=== PATIENT | female | born 1950 | race Caucasian/White ===

== ENCOUNTER 2017-01-08 14:42 | Emergency (ER) | payer MEDICARE ==
[2017-01-08 15:04] VITALS: BP 138/72; PULSE 56; RESP 16; TEMP 98.3
[2017-01-08] MEDS ORDERED: LORATADINE 10 MG TAB PO STA (15:25)
--- NOTE | 2017-01-08 15:46 | XR ---
EXAMINATION TYPE: XR chest 2V DATE OF EXAM: 01/08/2017 3:38 PM COMPARISON: NONE HISTORY: Cough and congestion for 2 months. TECHNIQUE: Frontal and lateral views of the chest are obtained. FINDINGS: There is no focal air space opacity, pleural effusion, or pneumothorax seen. The cardiac silhouette size is within normal limits. The osseous structures are intact. Cholecystectomy clips a re noted on lateral view. Surgical changes epigastric region with sutures and clips may be related to gastric bypass surgery. IMPRESSION: No acute cardiopulmonary process.
--- NOTE | 2017-01-08 15:51 | ED ---
General Adult HPI - General Chief complaint: Upper Respiratory Infection Stated complaint: cough Time Seen by Provider: 01/08/17 15:16 Source: patient, RN notes reviewed Mode of arrival: ambulatory Limitations: no limitations - History of Present Illness Initial comments: 66-year-old female presents to the emergency department with a chief complaint of cough. Patient has had a continued cough for the past 3 months. Patient states that she does feel some postnasal drip. Patient states the cough is worse at night. Patient denies any real sputum production and chest pain with it. Patient states that she went to her doctor he sent her lungs sound clear. Patient states she was concerned due to the continued cough so she thought that she should be reevaluated. Patient hasn't had a fever chills with this. Patient denies any heart issues. Patient denies any other symptoms at this time.Patient denies any recent fever, chills, shortness of breath, chest pain, back pain, abdominal pain, nausea vomiting, numbness or tingling, dysuria or hematuria, constipation or diarrhea, headaches or visual changes, or any other current symptoms. - Related Data Home Medications Medication Instructions Recorded Confirmed HYDROcodone/APAP 10-325MG [[place] 1 tab PO Q6H PRN 01/08/17 01/08/17 10-325] Lisinopril [Zestril] 10 mg PO DAILY 01/08/17 01/08/17 Montelukast [Singulair] 10 mg PO DAILY 01/08/17 01/08/17 Previous Rx's Medication Instructions Recorded Loratadine [Claritin] 5 mg PO DAILY #14 tab 01/08/17 Allergies Allergy/AdvReac Type Severity Reaction Status Date / Time No Known Allergies Allergy Verified 01/08/17 15:33 Review of Systems ROS Statement: Those systems with pertinent positive or pertinent negative responses have been documented in the HPI. ROS Other: All systems not noted in ROS Statement are negative. Past Medical History Past Medical History: Hypertension History of Any Multi-Drug Resistant Organisms: None Reported Past Surgical History: Back Surgery, Bariatric Surgery, Cholecystectomy, Hysterectomy, Orthopedic Surgery Past Psychological History: No Psychological Hx Reported Smoking Status: Never smoker Past Alcohol Use History: Occasional Past Drug Use History: None Reported General Exam Limitations: no limitations General appearance: alert, in no apparent distress Eye exam: Present: normal appearance, PERRL, EOMI. Absent: scleral icterus, conjunctival injection, periorbital swelling ENT exam: Present: normal exam, mucous membranes moist Neck exam: Present: normal inspection. Absent: tenderness, meningismus, lymphadenopathy Respiratory exam: Present: normal lung sounds bilaterally. Absent: respiratory distress, wheezes, rales, rhonchi, stridor Cardiovascular Exam: Present: regular rate, normal rhythm, normal heart sounds. Absent: systolic murmur, diastolic murmur, rubs, gallop, clicks Neurological exam: Present: alert, oriented X3, CN II-XII intact. Absent: motor sensory deficit Psychiatric exam: Present: normal affect, normal mood Skin exam: Present: warm, dry, intact, normal color. Absent: rash Course Vital Signs 01/08/17 14:59 Temperature 98.3 F Pulse Rate 56 L Respiratory 16 Rate Blood Pressure 138/72 O2 Sat by Pulse 99 Oximetry Medical Decision Making - Medical Decision Making 66-year-old male presents with chief complaint of cough. At this time due to the length of time she has been coughing discussed the different etiologies. Due to the fact that she does have some skin itching along with a cough we discussed this most likely an ALLERGY type component. We did set the patient and Claritin. We discussed that this should help improve the cough is it related to ALLERGIES. Chest x-ray did not show any acute process. We did discuss that acid reflux could be another cause of the Claritin does not help she should follow-up with her doctor for possibly taken an antacid-type medication to see if that would use the cough. We discussed she is also on lisinopril but with the postnasal drip we discussed that ALLERGY seems more suspicious that we did discuss follow-up. patient stated that she understood and she is given plan. All questions have been answered. This time she will be discharged home. - Radiology Data Radiology results: report reviewed, image reviewed Disposition Clinical Impression: Postnasal drip, Cough Disposition: HOME SELF-CARE Condition: Stable Instructions: Allergies (ED) Additional Instructions: Please use medication as discussed. Please follow up with family doctor if symptoms have not improved over the next two days. Please return to the emergency room if your symptoms increase or worsen or for any other concerns. Prescriptions: Loratadine [Claritin] 5 mg PO DAILY #14 tab Referrals: Eliana Wade MD [Primary Care Provider] - 1-2 days Time of Disposition: 15:53
== END 2017-01-08 16:01 | disposition home or self-care (01) ==
LOC: EC 14:42
DX: R09.82 Postnasal drip (principal); R05 Cough; I10 Essential (primary) hypertension; Z79.899 Other long term (current) drug therapy
CPT/HCPCS: 71020; 99283

== ENCOUNTER 2018-02-05 08:30 | Day surgery (SDC) | payer MEDICARE ==
[2018-02-03 09:54] VITALS: BMI 48.0
[~2018-02-05 08:30] MED LIST: MOXIFLOXACIN HCL 0.5% DROPS 3 ML BTL OP ONE; TETRACAINE 0.5% OPHTH (PF) DROPS 4 ML BTL OP ONE; TIMOLOL 0.5% OPHTH DROPS 5 ML BTL OP ONE
[2018-02-05 09:58] VITALS: RESP 18; TEMP 97.6
[2018-02-05] MEDS: CYCLOPENTOLATE 1% OPHTH SOLN 2 ML BTL OP ONE ×3 (09:58→10:12)
[2018-02-05] MEDS: PHENYLEPHRINE 2.5% OPHTH DRP 2ML OP NR ×3 (10:01→10:16)
[2018-02-05] MEDS: LACTATED RINGERS 1,000 ML IV SCH ×2 (10:16→10:40)
[2018-02-05] MEDS ORDERED: MIDAZOLAM 2 MG/2 ML VIAL ONE (10:42)
[2018-02-05] MEDS ORDERED: HYALURONATE SODIUM INTRAOCULAR 1 EACH SYRINGE (12MG/ML) INTRAOCULA ONE (10:43)
[2018-02-05] MEDS ORDERED: BALANCED SALT IRRIG SOLN COMB2 15 ML IRRIG.SOLN IRRIGATION ONE (10:43)
[2018-02-05] MEDS ORDERED: LIDOCAINE 1% (PF) 10MG/ML VIAL MISCELLANE ONE (10:44)
[2018-02-05] MEDS ORDERED: EPINEPHrine (PF) 0.3 ML in BALANCED SALT IRRIG SOLN COMB2 500 ML IRRIGATION ONE (10:46)
--- NOTE | 2018-02-05 11:15 | P.OP ---
Date of Procedure: 02/05/18 Preoperative Diagnosis: NS Postoperative Diagnosis: same Procedure(s) Performed: PIOL OD Implants: PCB00 21.50 Anesthesia: MAC Surgeon: Gerardo Blackwell Estimated Blood Loss (ml): 0 Pathology: none sent Condition: stable Disposition: same day Indications for Procedure: blurry vision Operative Findings: no complications
[2018-02-05 11:44] VITALS: BP 174/81; PULSE 68
--- NOTE | 2018-02-05 14:24 | OP ---
OPERATIVE REPORT DATE OF SERVICE: 02/05/2018 PROCEDURE: Phacoemulsification of cataract and intraocular lens implant of the right eye. PREOPERATIVE DIAGNOSIS: Nuclear sclerosis: POSTOPERATIVE DIAGNOSIS: Nuclear sclerosis. OPERATION:: Clear cornea phacoemulsification of cataract right eye. ESTIMATED BLOOD LOSS:: Zero. SPECIMEN TAKEN:: None. NARRATIVE:: After obtaining the appropriate consent, the patient was brought to the Operating Room where the patient was placed under cardiac monitoring and prepped and draped in the usual sterile manner. At the 11 o'clock position, a 15 degree super sharp blade was used to create a paracentesis followed by instillation of 1% Xylocaine MPF 50:50 mix with BSS into the anterior chamber. This was followed by Amvisc to stabilize the anterior chamber. At the 9 o'clock position a self-sealing corneal flap incision was created using 2.8 mm gretta keratome. A cystatome was used to initiate a continuous tear capsulorrhexis which was completed with the Utrata forceps. A Binkhorst cannula was used to hydrodissect the lens nucleus followed by hydrodelineation. Phacoemulsification of the lens was performed utilizing phacochop in 19.03 seconds at 15% power. The remaining cortical material was removed using the irrigation aspiration mode followed by additional 1% Xylocaine MPF into the anterior chamber followed by viscoelastic to stabilize the capsular bag. An MARGOT PCB00 21.5 diopters posterior chamber lens was placed into the capsular bag without difficulty. The remaining viscoelastic material was removed from the anterior chamber with the irrigation/aspiration. Balanced salt solution was used to normalize the intraocular pressure. The incision was checked for watertight integrity. The patient then received two drops of 0.5% timolol followed by two drops Vigamox, was lightly patched and shielded in the usual manner. There were no complications from the procedure. The patient tolerated the procedure well and was returned to recovery in good condition. MMODL / IJN: [id number] /
== END 2018-02-05 11:56 | disposition home or self-care (01) ==
LOC: OR 08:30
PROVIDERS: ATTEND Ophthalmology
DX: H25.13 Age-related nuclear cataract, bilateral (principal); I10 Essential (primary) hypertension; E03.9 Hypothyroidism, unspecified; H52.13 Myopia, bilateral; D64.9 Anemia, unspecified; E55.9 Vitamin D deficiency, unspecified; Z79.899 Other long term (current) drug therapy
CPT/HCPCS: 66984; C1780; J2250; J0171; J2001

== ENCOUNTER → 2018-02-19 | Day surgery (SDC) | payer MEDICARE ==
[2018-02-17 10:40] VITALS: BMI 46.3
[~2018-02-19] MED LIST changes: +BALANCED SALT IRRIG SOLN COMB2 15 ML IRRIG.SOLN IRRIGATION ONE; +EPINEPHrine (PF) 0.3 ML in BALANCED SALT IRRIG SOLN COMB2 500 ML IRRIGATION ONE; +HYALURONATE SODIUM INTRAOCULAR 1 EACH SYRINGE (12MG/ML) INTRAOCULA ONE; +LACTATED RINGERS 1,000 ML IV SCH; +LIDOCAINE 1% (PF) 10MG/ML VIAL MISCELLANE ONE; +LIDOCAINE 1% 20 ML VIAL (10MG/ML) FOR IV START INTRADERMA PRN; +MIDAZOLAM 2 MG/2 ML VIAL IV PRN; +MIDAZOLAM 2 MG/2 ML VIAL ONE; +fentaNYL (PF) 50 MCG/ML 2 ML AMP ONE
[2018-02-19] MEDS: PHENYLEPHRINE 2.5% OPHTH DRP 2ML OP NR ×3 (07:50→08:02)
[2018-02-19] MEDS: CYCLOPENTOLATE 1% OPHTH SOLN 2 ML BTL OP ONE ×3 (07:53→08:05)
[2018-02-19 08:05] VITALS: RESP 16; TEMP 97
--- NOTE | 2018-02-19 09:17 | P.OP ---
Date of Procedure: 02/19/18 Preoperative Diagnosis: NS Postoperative Diagnosis: same Procedure(s) Performed: PIOL, OS Implants: PCB00 21.50 Anesthesia: MAC Surgeon: Gerardo Blackwell Estimated Blood Loss (ml): 0 Pathology: none sent Condition: stable Indications for Procedure: blurry vision Operative Findings: no complications
[2018-02-19 09:20] VITALS: PULSE 60
[2018-02-19 09:37] VITALS: BP 156/79
--- NOTE | 2018-02-19 12:46 | OP ---
OPERATIVE REPORT DATE OF SURGERY: 02/19/2018 PROCEDURE: Phacoemulsification of cataract and intraocular lens implant of the left eye. PREOPERATIVE DIAGNOSIS:: Nuclear sclerosis. POSTOPERATIVE DIAGNOSIS:: Nuclear sclerosis. OPERATION:: Clear cornea phacoemulsification of cataract left eye. ESTIMATED BLOOD LOSS:: Zero. SPECIMEN TAKEN:: None. NARRATIVE:: After obtaining the appropriate consent, the patient was brought to the Operating Room where the patient was placed under cardiac monitoring and prepped and draped in the usual sterile manner. At the 5 o'clock position a 15 degree super sharp blade was used to create a paracentesis followed by instillation of 1% Xylocaine MPF 50:50 mix with BSS into the anterior chamber. This was followed by Amvisc to stabilize the anterior chamber. At the 3 o'clock position a self-sealing corneal flap incision was created using 2.8 mm gretta keratome. A cystotome was used to initiate a continuous tear capsulorrhexis which was completed with the Utrata forceps. A Binkhorst cannula was used to hydrodissect the lens nucleus followed by hydrodelineation. Phacoemulsification of the lens was performed utilizing phaco-chop in 11.92 seconds at 18% power. The remaining cortical material was removed using the irrigation aspiration mode followed by additional 1% Xylocaine MPF into the anterior chamber followed by viscoelastic to stabilize the capsular bag. An [id number] 21.5 Diopters posterior chamber lens was placed into the capsular bag without difficulty. The remaining viscoelastic material was removed from the anterior chamber with the irrigation/aspiration. Balanced salt solution was used to normalize the intraocular pressure. The incision was checked for watertight integrity. The patient then received two drops of 0.5% timolol followed by two drops Vigamox, was lightly patched and shielded in the usual manner. There were no complications from the procedure. The patient tolerated the procedure well and was returned to recovery in good condition. MMODL / IJN: [id number] /
== END | disposition home or self-care (01) ==
LOC: OR 06:54
PROVIDERS: ATTEND Ophthalmology
DX: H25.12 Age-related nuclear cataract, left eye (principal); H52.13 Myopia, bilateral; Z96.1 Presence of intraocular lens; I10 Essential (primary) hypertension; E03.9 Hypothyroidism, unspecified; D64.9 Anemia, unspecified; E55.9 Vitamin D deficiency, unspecified; E66.01 Morbid (severe) obesity due to excess calories; Z68.42 Body mass index [BMI] 45.0-49.9, adult; Z79.890 Hormone replacement therapy; Z79.891 Long term (current) use of opiate analgesic; Z79.899 Other long term (current) drug therapy; Z98.84 Bariatric surgery status
CPT/HCPCS: 66984; C1780; J2250; J0171; J3010; J2001

== ENCOUNTER 2022-04-24 07:17 | Day surgery (SDC) | payer MEDICARE ==
[2022-04-20 10:21] VITALS: BMI 43.4
[2022-04-24 07:41] VITALS: TEMP 97.6
[2022-04-24] MEDS ORDERED: LACTATED RINGERS 1,000 ML IV ONE (07:47)
[2022-04-24] MEDS ORDERED: LIDOCAINE 1% (10MG/ML) FOR IV START INTRADERMA ONE (07:48)
[2022-04-24] MEDS ORDERED: PROPOFOL 10 MG/ML 20 ML VIAL IV ONE (07:59)
--- NOTE | 2022-04-24 08:02 | P.GSHP ---
History of Present Illness H&P Date: 04/24/22 Chief Complaint: Colon cancer screening 72-year-old female here today for follow-up colonoscopy. Last colonoscopy performed 7 years ago. Patient had a single polyp at that time. No bowel related complaints. No family history of colon cancer. Past Medical History Past Medical History: Hypertension, Osteoarthritis (OA), Pneumonia, Thyroid Disorder Additional Past Medical History / Comment(s): BACK PAIN, HX OF "STOMACH STAPLING"., BILATERAL CATARACTS., History of Any Multi-Drug Resistant Organisms: None Reported Past Surgical History: Back Surgery, Bariatric Surgery, Cholecystectomy, Hysterectomy, Joint Replacement, Orthopedic Surgery Additional Past Surgical History / Comment(s): left knee replacment, "stomach staple x 3 " (DR [id number]) , COLONOSCOPY Past Anesthesia/Blood Transfusion Reactions: No Reported Reaction Smoking Status: Never smoker - Past Family History Mother Family Medical History: Diabetes Mellitus Brother(s) Family Medical History: Diabetes Mellitus Medications and Allergies Home Medications Medication Instructions Recorded Confirmed Type Ergocalciferol [Vitamin D2 50,000 unit PO TU 11/12/17 04/20/22 History (LEWIS)] HYDROcodone/APAP 10-325MG [[place] 1 tab PO Q6H PRN 11/12/17 04/20/22 History 10-325] Levothyroxine Sodium 88 mcg PO DAILY 11/12/17 04/20/22 History Meloxicam [Mobic] 15 mg PO DAILY 04/20/22 04/20/22 History Phentermine HCl [Adipex-P] 37.5 mg PO DAILY 04/20/22 04/20/22 History Valsartan [Diovan] 160 mg PO DAILY 04/20/22 04/24/22 History Allergies Allergy/AdvReac Type Severity Reaction Status Date / Time No Known Allergies Allergy Verified 04/24/22 07:35 Surgical - Exam Vital Signs Temp Pulse Resp BP Pulse Ox 97.6 F 78 16 161/79 95 04/24/22 07:40 04/24/22 07:40 04/24/22 07:40 04/24/22 07:40 04/24/22 07:40 Physical exam: General: Well-developed, well-nourished HEENT: Normocephalic, sclerae nonicteric Abdomen: Nontender, nondistended Extremities: No edema Neuro: Alert and oriented Assessment and Plan (1) Colon cancer screening Narrative/Plan: Will proceed with colonoscopy at this time Current Visit: Yes Status: Acute Code(s): Z12.11 - ENCOUNTER FOR SCREENING FOR MALIGNANT NEOPLASM OF COLON SNOMED Code(s): 777842993
--- NOTE | 2022-04-24 08:27 | P.PCN ---
Date of Procedure: 04/24/22 Procedure(s) Performed: PREOPERATIVE DIAGNOSIS: Colon cancer screening with history of polyps POSTOPERATIVE DIAGNOSIS: Multiple polyps, poor prep, diverticulosis PROCEDURE: Colonoscopy with snare polypectomy ANESTHESIA: MAC SURGEON: Jm Hurtado M.D. SPECIMENS: Polyps ENDOSCOPIC PROCEDURE: The patient was placed on the endoscopy table in the left decubitus position. The Olympus colonoscope was inserted into the anus and passed under direct visualization to the base of the cecum. The appendiceal or ifice was visualized. From that point the scope was slowly withdrawn inspecting all surfaces carefully. There were no neoplastic inflammatory or polypoid lesions throughout the cecum or ascending colon. Transverse colon had 4 polyps all removed using the snare with cautery technique. The descending colon appeared normal. In the sigmoid colon 2 polyps were seen and removed in a similar fashion. The rectum appeared normal. The patient's prep was suboptimal and during the procedure the patient was coughing frequently making it difficult to visualize the mucosal surfaces well. There was mild left-sided diverticulosis seen. At the anus to was noted to be either a hypertrophied anal papilla or a hemorrhoidal skin tag noted. The patient was taken to the recovery room in stable condition per anesthesia guidelines. RECOMMENDATIONS: Await biopsy results. Recommend repeat colonoscopy 1 year with general anesthesia.
[2022-04-24 08:47] VITALS: BP 121/70; PULSE 60; RESP 16
== END 2022-04-24 09:26 | disposition home or self-care (01) ==
LOC: ORWHC2ENDO 07:17
PROVIDERS: ATTEND Surgery
DX: Z12.11 Encounter for screening for malignant neoplasm of colon (principal); D12.5 Benign neoplasm of sigmoid colon; D12.3 Benign neoplasm of transverse colon; K57.30 Diverticulosis of large intestine without perforation or abscess without bleeding; Z86.010 Personal history of colon polyps; I10 Essential (primary) hypertension; M19.90 Unspecified osteoarthritis, unspecified site; E07.9 Disorder of thyroid, unspecified; Z98.84 Bariatric surgery status; Z90.49 Acquired absence of other specified parts of digestive tract; Z83.3 Family history of diabetes mellitus; Z79.890 Hormone replacement therapy; Z79.1 Long term (current) use of non-steroidal anti-inflammatories (NSAID); Z79.899 Other long term (current) drug therapy; G35 Multiple sclerosis
CPT/HCPCS: 88305; 45385; J2704

== ENCOUNTER → 2023-08-30 | Outpatient (CLI) | payer MEDICARE | END | disposition home or self-care (01) | LOC: LABPAT 10:22 | PROVIDERS: ATTEND Orthopaedic Surgery | DX: Z01.812 Encounter for preprocedural laboratory examination (principal); M17.11 Unilateral primary osteoarthritis, right knee; Z22.322 Carrier or suspected carrier of Methicillin resistant Staphylococcus aureus | CPT/HCPCS: 87070 ==

== ENCOUNTER 2023-09-03 05:41 | Inpatient (IN) | payer MEDICARE ==
--- NOTE | 2023-09-02 08:20 | P.HPOR ---
History of Present Illness H&P Date: 09/02/23 Chief Complaint: Right knee pain The patient is a 73-year-old retired female presents with progressive right knee pain for the past several years worsening recently. She's having pain with weightbearing activities. She notes stiffness and soreness. She has difficult time with stairs. She tried medications in addition to previous injections with only temporary relief. She's been working hard on weight loss. Review of Systems Negative except as in HPI Past Medical History Past Medical History: Hypertension, Osteoarthritis (OA), Thyroid Disorder Additional Past Medical History / Comment(s): BACK PAIN, HX OF "STOMACH STAPLING"., BILATERAL CATARACTS., History of Any Multi-Drug Resistant Organisms: None Reported Past Surgical History: Back Surgery, Bariatric Surgery, Cholecystectomy, Hysterectomy, Joint Replacement, Orthopedic Surgery Additional Past Surgical History / Comment(s): left knee replacment, "stomach staple x 3 " (DR [id number]) , COLONOSCOPY lyndsay cataracts Past Anesthesia/Blood Transfusion Reactions: No Reported Reaction Smoking Status: Never smoker - Past Family History Mother Family Medical History: Diabetes Mellitus Brother(s) Family Medical History: Diabetes Mellitus Medications and Allergies Home Medications Medication Instructions Recorded Confirmed Type Ergocalciferol [Vitamin D2 50,000 unit PO TU 11/12/17 08/30/23 History (LEWIS)] HYDROcodone/APAP 10-325MG [[place] 1 tab PO Q6H PRN 11/12/17 08/30/23 History 10-325] Levothyroxine Sodium 88 mcg PO DAILY 11/12/17 08/30/23 History Meloxicam [Mobic] 15 mg PO DAILY 04/20/22 08/30/23 History Valsartan [Diovan] 160 mg PO DAILY 04/20/22 08/30/23 History ALPRAZolam [Xanax] 0.25 mg PO TID PRN 08/30/23 08/30/23 History Ciprofloxacin HCl [Cipro] 250 mg PO Q12H 08/30/23 08/30/23 History Allergies Allergy/AdvReac Type Severity Reaction Status Date / Time No Known Allergies Allergy Verified 08/30/23 08:01 Physical Examination - Knee right Appearance: effusion Effusion grade: grade 2 Varus alignment in stance: 5 degrees Tenderness with palpation: anterior, medial Pain: throughout ROM Gait: limping ROM: extension: -15 degrees ROM: flexion: 90 degrees Crepitus with motion: Yes Strength: extension: 5/5 Strength: flexion: 5/5 Meniscal tests: medial meniscal tests: positive, medial joint line pain: positive Results The patient is a well-developed well-nourished female I'm approximately 5 foot 5, 260 pounds of endomorphic abscess. HEENT exam is nonfocal, neck is supple. She has painless passive motion of the right hip. Straight leg raise is negative. She is tender with medial joint line of the right knee. Collaterals are stable, Carson was negative, Sophy's is equivocal. Her distal neurovascular exam appears intact in the right lower extremity. - Diagnostic results Knee x-ray: image reviewed (3 views of the right knee obtained in the office show severe medial compartment osteoarthrosis with [id number] changes and subchondral sclerosis.) Assessment and Plan Assessment: Right knee severe medial compartment osteoarthrosis Obesity Plan: I talked to the patient at length regarding her condition along with treatment options. At this point she is quite symptomatic having pain and mechanical symptoms related to her right knee osteoarthrosis despite conservative measures and attempted weight loss. After thorough discussion she opts to proceed with surgery. We'll plan to proceed with right total knee arthroplasty. We will institute DVT prophylaxis postoperatively. Risks and benefits were discussed at length in layman's terms.
[~2023-09-03 05:41] MED LIST changes: +ACETAMINOPHEN TAB 500 MG TAB PO PRN; -BALANCED SALT IRRIG SOLN COMB2 15 ML IRRIG.SOLN IRRIGATION ONE; -EPINEPHrine (PF) 0.3 ML in BALANCED SALT IRRIG SOLN COMB2 500 ML IRRIGATION ONE; -HYALURONATE SODIUM INTRAOCULAR 1 EACH SYRINGE (12MG/ML) INTRAOCULA ONE; -LACTATED RINGERS 1,000 ML IV SCH; -LIDOCAINE 1% (PF) 10MG/ML VIAL MISCELLANE ONE; -LIDOCAINE 1% 20 ML VIAL (10MG/ML) FOR IV START INTRADERMA PRN; +MELOXICAM 7.5 MG TAB PO PRN; -MIDAZOLAM 2 MG/2 ML VIAL IV PRN; -MIDAZOLAM 2 MG/2 ML VIAL ONE; -MOXIFLOXACIN HCL 0.5% DROPS 3 ML BTL OP ONE; -TETRACAINE 0.5% OPHTH (PF) DROPS 4 ML BTL OP ONE; -TIMOLOL 0.5% OPHTH DROPS 5 ML BTL OP ONE; +TRANEXAMIC 1,000 MG/100ML-NACL 1,000 MG in SALINE 1 100ML.BAG IVPB PRN; -fentaNYL (PF) 50 MCG/ML 2 ML AMP ONE
[2023-09-03] MEDS ORDERED: ONDANSETRON 4 MG/2 ML VIAL ONE (06:14)
[2023-09-03] MEDS: LACTATED RINGERS 1,000 ML IV SCH (06:19)
[2023-09-03] MEDS ORDERED: DEXAMETHASONE SOD PHOSPHATE 4 MG/ML 1 ML VIAL IVP ONE (06:55)
[2023-09-03] MEDS ORDERED: HYDROmorphone 0.5 MG/0.5 ML SYRINGE IVP PRN (07:00)
[2023-09-03] MEDS ORDERED: MIDAZOLAM 2 MG/2 ML VIAL IVP ONE (07:01)
[2023-09-03] MEDS ORDERED: fentaNYL (PF) 50 MCG/ML 2 ML AMP IVP ONE (07:02)
[2023-09-03] MEDS ORDERED: fentaNYL (PF) 50 MCG/ML 2 ML AMP ONE (07:42)
[2023-09-03] MEDS ORDERED: ROPIVACAINE 5 MG/ML 30 ML VIAL ONE (07:42)
[2023-09-03] MEDS ORDERED: LIDOCAINE 1% INJ 10MG/ML (20 ML MDV) ONE (07:42)
[2023-09-03] MEDS ORDERED: SODIUM CHLORIDE 0.9% (PF) 10 ML VIAL ONE (07:42)
[2023-09-03] MEDS ORDERED: TRANEXAMIC 1,000 MG/100ML-NACL PREMIX BAG ONE (07:42)
[2023-09-03] MEDS ORDERED: PROPOFOL 10 MG/ML 20 ML VIAL IV ONE (07:42)
[2023-09-03] MEDS ORDERED: MIDAZOLAM 2 MG/2 ML VIAL ONE (07:42)
[2023-09-03] MEDS ORDERED: ceFAZolin 1,000 MG in SODIUM CHLORIDE 0.9% 1,000 ML IRRIGATION ONE (08:18)
[2023-09-03] MEDS ORDERED: LACTATED RINGERS 1,000 ML IV ONE (09:18)
[2023-09-03] MEDS ORDERED: ONDANSETRON 4 MG/2 ML VIAL IVP PRN (09:51)
[2023-09-03] MEDS ORDERED: hydrOXYzine pamoate 25 MG CAP PO PRN (09:51)
[2023-09-03] MEDS ORDERED: MORPHINE SULFATE 2 MG/ML SYRINGE IVP PRN (09:51)
[2023-09-03] MEDS ORDERED: NALOXONE 0.4 MG/ML 1 ML VIAL IV PRN (09:51)
[2023-09-03] MEDS ORDERED: MORPHINE SULFATE 4 MG/ML SYRINGE IV PRN (09:51)
--- NOTE | 2023-09-03 10:00 | P.OP ---
Date of Procedure: 09/03/23 Preoperative Diagnosis: Right knee severe tricompartmental osteoarthrosis Postoperative Diagnosis: Same Procedure(s) Performed: Right total knee arthroplastycementedposterior stabilized Implants: Depuy Attune size 5 narrow cemented femoral component, size 4 cemented tibial component with a 14 x 50 mm tibial extension, 9 mm articular surface, 32 mm cemented patellar component. This is a posterior stabilized implant. Anesthesia: regional, spinal Surgeon: Mark Gracia Estimated Blood Loss (ml): 50 Pathology: none sent Condition: stable Disposition: PACU Indications for Procedure: The patient is a 73-year-old female who presents with progressive right knee pain secondary to osteoarthrosis by conservative measures. He discussion of the risks and benefits of operative intervention versus continued conservative measures was made with patient. She opted to proceed with surgery. Operative risks to include infection, neurovascular injury, development of blood clots, fracture, possible component loosening, possible component failure need for subsequent procedures was discussed. Informed consent was obtained. Operative Findings: As below Description of Procedure: The patient was brought to the operating room, and after induction of spinal anesthesia the right lower extremity was prepped and draped in a normal fashion. The tourniquet was inflated to 270 mm marker. A longitudinal incision extending 3 finger breaths above the superior pole of patella extending to the medial aspect the tibial tubercle was then made. The skin and subcutaneous tissues were divided sharply. Electrocautery was used for hemostasis. A medial parapatellar arthrotomy was performed. The medial soft tissues to include the superficial and deep portions of the medial collateral ligament were elevated subperiosteally. The patella was everted. A portion of the retropatellar fat pad was excised sharply. The anterior cruciate ligament was sacrificed. Blunt retractors were placed. A starting hole was made in the distal femur 1 cm anterior to the posterior cruciate ligament origin. An intramedullary femoral guide was then inserted planning on 5 valgus distal cut with 9 mm distal resection. The cutting block was pinned in place. The distal cut was then made. The posterior referencing sizing guide was utilized. I felt size 5 narrow was most appropriate. 3 of external rotation was built into the system and verified off the trans-epicondylar axis and the posterior condyles. The cutting block was pinned in place. The anterior, posterior, and chamfer cuts then made. Bone fragments were removed. The intercondylar guide was placed and the notch cut was made with a sagittal saw. The bone block was removed in one fragment. The trial component was then placed. There is good anterior to posterior and medial to lateral fit. The distal peg holes were drilled. The trial component was removed. Attention was then paid towards preparing the proximal tibia. An extra medullary guide was utilized in line with the tibial shaft and second metatarsal distally. I planned on 2 mm resection from the medial compartment. The cutting block was pinned in place. The proximal tibial cut was then made. The bone was removed in one fragment. The remnants of the medial and lateral menisci were excised at the capsular junction with electrocautery. The tibia sized most appropriately at size 4. The trial femoral and tibial components were placed along with a 9 mm articular surface. I was able to obtain full flexion and extension with internal and external rotation. After several flexion and extension cycles, the tibial rotation was marked with electrocautery line with the medial one third of the tibial tubercle. Attention was then paid towards preparing the patella. A patella reamer was utilized taking stem to 14 mm of bone stock. A good flush cut was made. The patella sized most appropriately 32 mm. The peg holes were drilled. The trial components placed. I had good patellofemoral tracking with no hands technique. The trial components were then removed. The tibia was prepared in the appropriate rotation with appropriate drill and keel punch planning on a 14 x 50 mm tibial extension The posterior osteophytes were removed with a curved osteotome. The flexion and extension gaps were checked and felt to be symmetric at 9 mm. A trial components were then removed. The bony surfaces were prepared with pulsatile lavage and dried. The tibial component was then cemented place was fully seated. Excess cement was removed. The femoral component cemented place and was fully seated. Excess cement was removed. The trial 9 mm articular surface was placed and the knee was put in full extension. The patella component was cemented place. After the cement had sufficiently hardened, the knee was again taken through a range of motion. Again I was able to obtain full flexion and extension with varus and valgus stress. The trial 9 mm articular surface was removed and the final one inserted. This was fully seated. Care was taken to avoid any soft tissue interposition. Pulsatile lavage was again utilized. The medial parapatellar arthrotomy was closed with #2 Ethibond suture. The tourniquet was deflated with approximately 60 minutes total tourniquet time. Final hemostasis was obtained with the cautery. There was minimal bleeding therefore a deep drain was not placed. The subcutaneous tissues were reapproximated with interrupted 2-0 Vicryl sutures. The skin was reapproximated with 3-0 subcuticular strata fix suture. Skin tape and adhesive was applied. A sterile dressing was applied. The patient was awoken from sedation and transferred to recovery room in good condition. Blood loss was estimated at 50 mL. No complications were incurred. Sponge and needle counts were correct at the end of the case.
[2023-09-03] MEDS ORDERED: ROPIVACAINE 1,100 MG, SODIUM CHLORIDE 0.9% 500 ML 330 ML, EMPTY PAIN BALL 1 EACH MISCELLANE PRN ×2 (10:04)
--- NOTE | 2023-09-03 10:31 | XR ---
EXAMINATION TYPE: XR knee limited RT DATE OF EXAM: 09/03/2023 10:23 AM CLINICAL INDICATION:Female, 73 years old with history of Evaluation for Postop abnormality and alignm ent; [facility] COMPARISON: None. TECHNIQUE: XR knee limited RT; examined in Frontal and lateral projections. FINDINGS: Status post total knee arthroplasty changes with hardware in appropriate alignment and in tact. No evidence of fracture. Subcutaneous lucencies and lucencies within the joint consistent with surgical changes. IMPRESSION: Status post total knee arthroplasty changes with hardware intact and appropriate alignment. No fractu res identified.
[2023-09-03] MEDS ORDERED: hydrALAZINE HCL 20 MG/ML 1 ML VIAL IVP ONE ×2 (10:40→12:26)
--- NOTE | 2023-09-03 11:32 | P.ANPRN ---
Procedure Note - Anesthesia - Nerve Block Performed Right Adductor Canal Infusion Time Out Performed: Yes (0707) Date of Procedure: 09/03/23 Procedure Start Time: :08 Procedure Stop Time: :11 Location of Patient: PreOp Indication: Acute Post-Operative Pain, Requested by Surgeon Specifically requested for management of pain by : Mark Gracia Sedation Type: Sedate with meaningful contact maintained Preparation: Sterile Prep Position: Supine Catheter Depth at Skin (cm): 8 Catheter: Indwelling Needle Types: Pajunk Needle Gauge: 18 Ultrasound used to visualize needle placement: Yes Ultrasound used to observe medication spread: Yes Injectate: 0.5% Ropivacaine (see comment for volume) (15cc + 5cc nacl pf) Blood Aspirated: No Pain Paresthesia on Injection Noted: No Resistance on Injection: Normal Image Stored and Saved: Yes Events: Uneventful and Well Tolerated
--- NOTE | 2023-09-03 11:33 | P.ANPRN ---
Procedure Note - Anesthesia - Nerve Block Performed Right iPack Single Time Out Performed: Yes (0707) Date of Procedure: 09/03/23 Procedure Start Time: 07:12 Procedure Stop Time: 07:14 Location of Patient: PreOp Indication: Acute Post-Operative Pain, Requested by Surgeon Specifically requested for management of pain by DrYash: Mark Gracia Sedation Type: Sedate with meaningful contact maintained Preparation: Sterile Prep Position: Supine Catheter: None Needle Types: Pajunk Needle Gauge: 21 Ultrasound used to visualize needle placement: Yes Ultrasound used to observe medication spread: Yes Injectate: 0.5% Ropivacaine (see comment for volume) (15cc+ 5cc nacl pf) Blood Aspirated: No Pain Paresthesia on Injection Noted: No Resistance on Injection: Normal Image Stored and Saved: Yes Events: Uneventful and Well Tolerated
[2023-09-03] MEDS ORDERED: HYDROmorphone 0.5 MG/0.5 ML SYRINGE IVP ONE ×3 (12:02→12:20)
[2023-09-03] MEDS ORDERED: ALPRAZolam 0.25 MG TAB PO PRN (14:15)
[2023-09-03] MEDS: hydrALAZINE HCL 20 MG/ML 1 ML VIAL IVP PRN (14:39)
[2023-09-03] MEDS: VALSARTAN 160 MG TAB PO SCH (14:50)
[2023-09-03] MEDS ORDERED: ERGOCALCIFEROL 1,250 MCG (50,000 IU) CAPSULE PO SCH (15:00)
[2023-09-03] MEDS: HYDROmorphone 0.5 MG/0.5 ML SYRINGE IVP PRN (23:12)
[2023-09-03] MEDS: SENNOSIDES-DOCUSATE SODIUM 1 EACH TAB PO SCH (23:12)
[2023-09-04] MEDS: HYDROcodone/APAP 7.5-325MG 1 EACH TAB PO PRN ×3 (04:18→20:01)
[2023-09-04] MEDS: LEVOTHYROXINE 88 MCG TAB PO SCH (06:05)
[2023-09-04] MEDS: LACTATED RINGERS 1,000 ML IV SCH (06:06)
[2023-09-04] MEDS: HYDROmorphone 0.5 MG/0.5 ML SYRINGE IVP PRN (06:08)
--- NOTE | 2023-09-04 07:05 | P.PN ---
Progress Note - Text Progress Note Date: 09/04/23 (731) Anesthesiology Postop day 1 status post total knee arthroplasty with adductor canal catheter. Patient doing well. VAS 2 out of 10. Gross strength intact in lower extremity. Afebrile. Denies alterations in sensorium. Catheter site intact. Heart regular rate Lungs nonlabored Abdomen nondistended Assessment: Postop day 1 status post total knee arthroplasty with adductor canal catheter Plan: 1.All questions answered. Maintain catheter 2 more days with patient removal at home. Instructions to be given at discharge. 2.This note was dictated using [employer] software. Please be advised there is a potential for misspellings or errors in clinical documentation spec.
[2023-09-04] MEDS: VALSARTAN 160 MG TAB PO SCH (08:15)
[2023-09-04] MEDS: RIVAROXABAN 10 MG TAB PO SCH (08:16)
[2023-09-04 08:53] LABS: Basophils # (A) 0.01 X 10*3/uL (0.00-0.10); Basophils % (A) 0.2 %; Eosinophils # (A) 0 X 10*3/uL (0.04-0.35); Eosinophils % (A) 0 %; HCT 31.5 % (37.2-46.3); HGB 10.4 g/dL (12.0-15.0); Lymphocytes # (A) 0.98 X 10*3/uL (0.90-5.00); Lymphocytes % (A) 14.9 %; MCH 31.6 pg (27.0-32.0); MCV 95.7 FL (80.0-97.0); Mean Platelet Volume 10.6 FL (9.5-12.2); Monocytes # (A) 0.47 X 10*3/uL (0.20-1.00); Monocytes % (A) 7.1 %; NRBC Per 100 WBC 0 X 10*3/uL (0.00-0.01); Neutrophils # (A) 5.11 X 10*3/uL (1.80-7.70); Neutrophils % (A) 77.5 %; Platelet Count 273 X 10*3/uL (140-440); RBC 3.29 X 10*6/uL (4.10-5.20); RDW 14.3 % (11.5-14.5); WBC 6.59 X 10*3/uL (4.50-10.00)
--- NOTE | 2023-09-04 09:14 | P.PN ---
Subjective Progress Note Date: 09/04/23 Principal diagnosis: Right knee osteoarthritis Patient was seen at bedside this morning lying semirecumbent position with a dressing over right knee. Patient says she rates her pain as 8/10 currently. Patient says she is hoping to go to rehab upon discharge. Patient says she does have a walker for home. Patient states she had her other knee replaced about 10 years ago so she is familiar with recovery process. Patient denies chest pain, fever, shortness breath, nausea, vomiting, change in vision, loss of bowel/bladder control. Objective - Vital Signs Vital signs: Vital Signs Temp 98.8 F 09/04/23 07:05 Pulse 78 09/04/23 07:05 Resp 18 09/04/23 07:05 BP 163/75 09/04/23 07:05 Pulse Ox 95 09/04/23 07:05 FiO2 Intake & Output 09/03/23 09/04/23 09/04/23 18:59 06:59 18:59 Intake Total 1651 Output Total 50 Balance 1601 Weight 117.9 kg Intake: IV 1651 Output: Estimated Blood Loss 50 Other: Voiding Method Toilet # Voids 1 2 - Exam Right knee: Incision is clean, dry, and intact. The exofin fusion tape is in good condition. There is minimal soft tissue swelling and ecchymosis surrounding the medial and lateral aspects of the incision. Calf is soft, no tenderness with palpation. Plantar flexion, dorsiflexion, EHL, FHL are intact. Sensory exam to light touch throughout the extremity is intact, dorsal pedis pulses 2+. - Labs CBC & Chem 7: 09/04/23 05:10 Assessment and Plan Assessment: 1. Right knee osteoarthritis - Postop day #1 status post right total knee arthroplasty Plan: 1. Right knee osteoarthritis - right total knee arthroplasty performed yesterday, 09/03/2023. Patient stable at bedside this morning. Patient does have a walker home. Pending PT/OT evaluation, plan for patient to stay one more night in hospital. Plan for discharge to rehab within the next couple days. 2. Appreciate medical management 3. Pain management - Jarrell; Vistaril 4. DVT prophylaxis - Xarelto 5. GI prophylaxis - senna 6. PT/OT - weightbearing as tolerated with walker 7. Encourage incentive spirometer use 8. Discharge planning - plan for discharge to rehab within the next couple days Time with Patient: Less than 30
--- NOTE | 2023-09-04 09:37 | P.CONS ---
History of Present Illness - Reason for Consult Consult date: 09/03/23 - History of Present Illness Lupis Álvarez is a 73-year-old female patient who presented for an elective total right knee arthroplasty with Dr. Arriaza on 09/03/2023. Patient has past medical history of osteoarthritis to the right knee that has been worsening over the past few years failed conservative management. Patient is a past medical history of hypertension thyroid disorder and cholecystectomy. At this time patient is resting comfortably in bed. Patient denies chest pain or shortness breath. Patient denies nausea vomiting or diarrhea. Patient denies any urinary burning or frequency. Patient started on xarelto for DVT management per orthopedic services. Social work services PT and OT services consulted patient will likely need rehab upon discharge Review of Systems Please refer to HPI otherwise unremarkable Past Medical History Past Medical History: Hypertension, Osteoarthritis (OA), Thyroid Disorder Additional Past Medical History / Comment(s): BACK PAIN, HX OF "STOMACH STAPLING"., BILATERAL CATARACTS., History of Any Multi-Drug Resistant Organisms: None Reported Past Surgical History: Back Surgery, Bariatric Surgery, Cholecystectomy, Hysterectomy, Joint Replacement, Orthopedic Surgery Additional Past Surgical History / Comment(s): left knee replacment, "stomach staple x 3 " (DR [id number]) , COLONOSCOPY lyndsay cataracts Past Anesthesia/Blood Transfusion Reactions: No Reported Reaction Smoking Status: Never smoker - Past Family History Mother Family Medical History: Diabetes Mellitus Brother(s) Family Medical History: Diabetes Mellitus Medications and Allergies Home Medications Medication Instructions Recorded Confirmed Type Ergocalciferol [Vitamin D2 50,000 unit PO TU 11/12/17 09/03/23 History (LEWIS)] HYDROcodone/APAP 10-325MG [Dougherty 1 tab PO Q6H PRN 11/12/17 09/03/23 History 10-325] Levothyroxine Sodium 88 mcg PO DAILY 11/12/17 09/03/23 History Meloxicam [Mobic] 15 mg PO DAILY 04/20/22 09/03/23 History Valsartan [Diovan] 160 mg PO DAILY 04/20/22 09/03/23 History ALPRAZolam [Xanax] 0.25 mg PO TID PRN 08/30/23 09/03/23 History Ciprofloxacin HCl [Cipro] 250 mg PO Q12H 08/30/23 09/03/23 History Allergies Allergy/AdvReac Type Severity Reaction Status Date / Time No Known Allergies Allergy Verified 09/03/23 06:19 Physical Exam Vitals: Vital Signs Temp Pulse Pulse Resp BP BP Pulse Ox 09/03/23 14:55 107 H 164/87 97 09/03/23 14:40 92 165/101 97 09/03/23 14:25 94 174/95 97 09/03/23 14:14 98 179/96 98 09/03/23 14:12 91 191/109 97 09/03/23 14:10 97 187/118 98 09/03/23 13:57 95 182/89 98 09/03/23 13:41 94 195/95 97 09/03/23 13:26 95 173/82 99 09/03/23 13:22 93 184/89 99 09/03/23 13:10 97.8 F 92 18 177/108 100 09/03/23 12:52 180/84 09/03/23 12:35 75 20 181/86 99 09/03/23 12:25 204/96 09/03/23 12:05 59 L 18 188/90 100 09/03/23 11:51 94 L 09/03/23 11:45 60 17 119/82 92 L 09/03/23 11:35 61 20 156/79 100 09/03/23 11:05 46 L 18 145/71 98 09/03/23 10:59 153/75 09/03/23 10:50 50 L 18 167/78 99 09/03/23 10:35 50 L 16 198/88 98 09/03/23 10:20 50 L 16 181/83 98 09/03/23 10:05 55 L 16 151/72 100 09/03/23 09:50 97.3 F L 53 L 16 151/72 98 09/03/23 07:19 64 18 169/75 100 09/03/23 06:41 98.3 F 73 18 197/80 95 Intake and Output 09/03/23 09/03/23 09/03/23 06:59 14:59 22:59 Intake Total 100 1651 Output Total 50 Balance 100 1601 Intake: IV 100 1651 Output: Estimated Blood Loss 50 Other: Weight 117.9 kg 117.9 kg Head normocephalic Neck supple Lungs clear to auscultation bilaterally no wheezing or crackles Heart regular rate and rhythm S1-S2, no rub or gallop Abdomen is soft nontender nondistended positive bowel sounds no hepatosplenomegaly Extremities no edema. Right knee dressing clean dry and intact Neuro alert and orientated to 3 Results CBC & Chem 7: 09/04/23 05:10 Assessment and Plan Assessment: 1. Right knee osteoarthritis status post total right knee arthroplasty 09/03/[address] Arriaza 2. History of essential hypertension 3. History of hypothyroidism 4. History of cholecystectomy 5. Obesity DVT prophylaxis xarelto per orthopedic services Social work services, PT OT consulted for discharge planning Repeat labs ordered Thank you for this consultation we'll continue to follow patient closely throughout stay
--- NOTE | 2023-09-04 09:39 | P.PN ---
Subjective Progress Note Date: 09/04/23 Lupis Álvarez is a 73-year-old female patient who presented for an elective total right knee arthroplasty with Dr. Arriaza on 09/03/2023. Patient has past medical history of osteoarthritis to the right knee that has been worsening over the past few years failed conservative management. Patient is a past medical history of hypertension thyroid disorder and cholecystectomy. At this time patient is resting comfortably in bed. Patient denies chest pain or shortness breath. Patient denies nausea vomiting or diarrhea. Patient denies any urinary burning or frequency. Patient started on xarelto for DVT management per orthopedic services. Social work services PT and OT services consulted patient will likely need rehab upon discharge On 09/04/2023 patient oriented 3 currently postop day 1. Patient reports some discomfort to surgical site. Patient reports she has been up walking with physical therapy denies chest pain or shortness breath. Patient denies nausea vomiting or diarrhea. Patient denies any urinary burning or frequency. Current vital signs temp 90.8, heart rate 78, Lupis rate 18, blood pressure 163/75 and pulse ox 95% on room air Objective - Vital Signs Vital signs: Vital Signs Temp 98.8 F 09/04/23 07:05 Pulse 78 09/04/23 07:05 Resp 18 09/04/23 07:05 BP 163/75 09/04/23 07:05 Pulse Ox 95 09/04/23 07:05 FiO2 Intake & Output 09/03/23 09/04/23 09/04/23 18:59 06:59 18:59 Intake Total 1651 Output Total 50 Balance 1601 Weight 117.9 kg Intake: IV 1651 Output: Estimated Blood Loss 50 Other: Voiding Method Toilet # Voids 1 2 - Exam Head normocephalic Neck supple Lungs clear to auscultation bilaterally no wheezing or crackles Heart regular rate and rhythm S1-S2, no rub or gallop Abdomen is soft nontender nondistended positive bowel sounds no hepatosplenomegaly Extremities no edema. Right knee dressing clean dry and intact Neuro alert and orientated to 3 - Labs CBC & Chem 7: 09/04/23 05:10 Labs: Abnormal Lab Results - Last 24 Hours (Table) 09/04/23 Range/Units 05:10 RBC 3.29 L (4.10-5.20) X 10*6/uL Hgb 10.4 L (12.0-15.0) g/dL Hct 31.5 L (37.2-46.3) % Eosinophils # 0 L (0.04-0.35) X 10*3/uL Assessment and Plan Assessment: 1. Right knee osteoarthritis status post total right knee arthroplasty 09/03/[address] Arriaza 2. History of essential hypertension 3. History of hypothyroidism 4. History of cholecystectomy 5. Obesity DVT prophylaxis xarelto per orthopedic services Social work services, PT OT consulted for discharge planning Repeat labs ordered Thank you for this consultation we'll continue to follow patient closely throughout stay
[2023-09-04 17:16] LABS: ALT 14 U/L (8-44); AST 20 U/L (13-35); Albumin 3.4 g/dL (3.8-4.9); Albumin/Globulin Ratio 1.79 Ratio (1.60-3.17); Alkaline Phosphatase 93 U/L (41-126); BUN/Creat Ratio 17.29 Ratio (12.00-20.00); Blood Urea Nitrogen 12.1 mg/dL (9.0-27.0); Calcium 8.9 mg/dL (8.7-10.3); Carbon Dioxide 24.6 mmol/L (21.6-31.8); Chloride 105 mmol/L (96-109); Globulin 1.9 g/dL (1.6-3.3); Glucose 116 mg/dL (70-110); Potassium 3.8 mmol/L (3.5-5.5); Sodium 138 mmol/L (135-145); Total Bilirubin 0.5 mg/dL (0.3-1.2); Total Protein 5.3 g/dL (6.2-8.2)
[2023-09-04] MEDS: SENNOSIDES-DOCUSATE SODIUM 1 EACH TAB PO SCH (20:01)
[2023-09-05] MEDS: hydrALAZINE HCL 20 MG/ML 1 ML VIAL IVP PRN ×2 (01:57→09:10)
[2023-09-05] MEDS: HYDROcodone/APAP 7.5-325MG 1 EACH TAB PO PRN ×4 (02:08→23:04)
[2023-09-05] MEDS: LACTATED RINGERS 1,000 ML IV SCH (05:24)
[2023-09-05] MEDS: LEVOTHYROXINE 88 MCG TAB PO SCH (06:17)
[2023-09-05] MEDS: VALSARTAN 160 MG TAB PO SCH (09:10)
[2023-09-05] MEDS: RIVAROXABAN 10 MG TAB PO SCH (09:10)
--- NOTE | 2023-09-05 09:57 | P.PN ---
Subjective Progress Note Date: 09/05/23 Lupis Álvarez is a 73-year-old female patient who presented for an elective total right knee arthroplasty with Dr. Arriaza on 09/03/2023. Patient has past medical history of osteoarthritis to the right knee that has been worsening over the past few years failed conservative management. Patient is a past medical history of hypertension thyroid disorder and cholecystectomy. At this time patient is resting comfortably in bed. Patient denies chest pain or shortness breath. Patient denies nausea vomiting or diarrhea. Patient denies any urinary burning or frequency. Patient started on xarelto for DVT management per orthopedic services. Social work services PT and OT services consulted patient will likely need rehab upon discharge On 09/04/2023 patient oriented 3 currently postop day 1. Patient reports some discomfort to surgical site. Patient reports she has been up walking with physical therapy denies chest pain or shortness breath. Patient denies nausea vomiting or diarrhea. Patient denies any urinary burning or frequency. Current vital signs temp 90.8, heart rate 78, respiratory rate 18, blood pressure 163/75 and pulse ox 95% on room air. On 09/05/2023 patient was seen and examined on the medical floor she is alert and oriented 3 in no apparent distress she is postoperative day #2, she is complaining of knee pain and difficulty walking otherwise she denies any complaints at this time she has a low-grade fever of 99 however she denies any cough or burning with urination, will continue to monitor at this time, blood pressure has been significantly elevated, patient has been maintained on valsartan time 160 mg daily, at this time she is also receiving IV hydralazine, however blood pressure is remaining elevated, I will add Coreg 3.125 mg by mouth twice daily and continue to monitor. Otherwise patient is denying any symptoms there is no fever or chills no headache or dizziness no chest pain no shortness of breath no cough no nausea or vomiting no abdominal pain no diarrhea and no urinary symptoms. Objective - Vital Signs Vital signs: Vital Signs Temp 99.0 F 09/05/23 07:34 Pulse 81 09/05/23 07:34 Resp 20 09/05/23 07:34 BP 184/95 09/05/23 07:34 Pulse Ox 97 09/05/23 07:34 FiO2 Intake & Output 09/04/23 09/05/23 09/05/23 18:59 06:59 18:59 Other: Voiding Method Toilet # Voids 1 2 - Exam Head normocephalic Neck supple Lungs clear to auscultation bilaterally no wheezing or crackles Heart regular rate and rhythm S1-S2, no rub or gallop Abdomen is soft nontender nondistended positive bowel sounds no hep atosplenomegaly Extremities no edema. Right knee dressing clean dry and intact Neuro alert and orientated to 3 - Labs CBC & Chem 7: 09/04/23 05:10 09/04/23 05:10 Labs: Abnormal Lab Results - Last 24 Hours (Table) 09/04/23 Range/Units 05:10 Glucose 116 H (70-110) mg/dL Total Protein 5.3 L (6.2-8.2) g/dL Albumin 3.4 L (3.8-4.9) g/dL Assessment and Plan Assessment: 1. Right knee osteoarthritis status post total right knee arthroplasty 09/03/[address] Arriaza 2. History of essential hypertension 3. History of hypothyroidism 4. History of cholecystectomy 5. Obesity DVT prophylaxis xarelto per orthopedic services Social work services, PT OT consulted for discharge planning Repeat labs ordered Thank you for this consultation we'll continue to follow patient closely throughout stay
--- NOTE | 2023-09-05 11:10 | P.PN ---
Subjective Progress Note Date: 09/05/23 Principal diagnosis: status post right total knee arthroplasty Patient evaluated at bedside, she is resting in her hospital chair. She states the pain is improved since yesterday. [facility]ural medicine is monitoring her blood pressure which continues to be elevated. Patient is still for discharge to rehab. Denies any nausea, vomiting, chest pain or shortness of breath Objective - Vital Signs Vital signs: Vital Signs Temp 99.0 F 09/05/23 07:34 Pulse 81 09/05/23 07:34 Resp 20 09/05/23 07:34 BP 184/95 09/05/23 07:34 Pulse Ox 97 09/05/23 07:34 FiO2 Intake & Output 09/04/23 09/05/23 09/05/23 18:59 06:59 18:59 Other: Voiding Method Toilet # Voids 1 2 - Exam Right lower extremity: Incision is clean, dry, and intact. The exofin fusion tape is in good condition. There is minimal soft tissue swelling and ecchymosis surrounding the medial and lateral aspects of the incision. Calf is soft, no tenderness with palpation. Plantar flexion, dorsiflexion, EHL, FHL are intact. Sensory exam to light touch throughout the extremity is intact, dorsal pedis pulses 2+. - Labs CBC & Chem 7: 09/04/23 05:10 09/04/23 05:10 Labs: Abnormal Lab Results - Last 24 Hours (Table) 09/04/23 Range/Units 05:10 Glucose 116 H (70-110) mg/dL Total Protein 5.3 L (6.2-8.2) g/dL Albumin 3.4 L (3.8-4.9) g/dL Assessment and Plan Assessment: Postoperative day #2 status post right total knee arthroplasty Plan: Pain control, continue current medications DVT prophylaxis, continue current medications Ice and elevate the extremity often Encourage incentive spirometer Weight-bear as tolerated with walker Medical recommendations appreciated Discharge planning: Discharge to subacute rehab when bed available Time with Patient: Less than 30
[2023-09-05] MEDS: carvediloL 3.125 MG TAB PO SCH ×2 (11:30→17:03)
[2023-09-05] MEDS: SENNOSIDES-DOCUSATE SODIUM 1 EACH TAB PO SCH (20:18)
[2023-09-06] MEDS: HYDROcodone/APAP 7.5-325MG 1 EACH TAB PO PRN ×2 (05:44→13:21)
[2023-09-06] MEDS: LEVOTHYROXINE 88 MCG TAB PO SCH (05:44)
[2023-09-06] MEDS: hydrALAZINE HCL 20 MG/ML 1 ML VIAL IVP PRN (05:54)
[2023-09-06 06:39] VITALS: PULSE 65
[2023-09-06] MEDS: LACTATED RINGERS 1,000 ML IV SCH (07:21)
[2023-09-06] MEDS: carvediloL 3.125 MG TAB PO SCH (07:22)
[2023-09-06 08:25] VITALS: RESP 20; TEMP 98.2
[2023-09-06] MEDS: RIVAROXABAN 10 MG TAB PO SCH (08:27)
[2023-09-06] MEDS: VALSARTAN 160 MG TAB PO SCH (08:27)
[2023-09-06 08:51] VITALS: BP 155/75
--- NOTE | 2023-09-06 11:11 | P.PN ---
Subjective Progress Note Date: 09/06/23 Lupis Álvarez is a 73-year-old female patient who presented for an elective total right knee arthroplasty with Dr. Arriaza on 09/03/2023. Patient has past medical history of osteoarthritis to the right knee that has been worsening over the past few years failed conservative management. Patient is a past medical history of hypertension thyroid disorder and cholecystectomy. At this time patient is resting comfortably in bed. Patient denies chest pain or shortness breath. Patient denies nausea vomiting or diarrhea. Patient denies any urinary burning or frequency. Patient started on xarelto for DVT management per orthopedic services. Social work services PT and OT services consulted patient will likely need rehab upon discharge On 09/04/2023 patient oriented 3 currently postop day 1. Patient reports some discomfort to surgical site. Patient reports she has been up walking with physical therapy denies chest pain or shortness breath. Patient denies nausea vomiting or diarrhea. Patient denies any urinary burning or frequency. Current vital signs temp 90.8, heart rate 78, respiratory rate 18, blood pressure 163/75 and pulse ox 95% on room air. On 09/05/2023 patient was seen and examined on the medical floor she is alert and oriented 3 in no apparent distress she is postoperative day #2, she is complaining of knee pain and difficulty walking otherwise she denies any complaints at this time she has a low-grade fever of 99 however she denies any cough or burning with urination, will continue to monitor at this time, blood pressure has been significantly elevated, patient has been maintained on valsartan time 160 mg daily, at this time she is also receiving IV hydralazine, however blood pressure is remaining elevated, I will add Coreg 3.125 mg by mouth twice daily and continue to monitor. Otherwise patient is denying any symptoms there is no fever or chills no headache or dizziness no chest pain no shortness of breath no cough no nausea or vomiting no abdominal pain no diarrhea and no urinary symptoms. On 09/06/2023 patient is alert and oriented 3 currently sitting up in chair. Patient continuing to have elevated blood pressures. Coreg dose increased to 6.25. Social work services following for discharge planning. Patient denies chest pain or shortness of breath. Patient denies nausea vomiting or diarrhea. Patient denies any urinary burning or frequency Objective - Vital Signs Vital signs: Vital Signs Temp 98.2 F 09/06/23 07:07 Pulse 65 09/06/23 07:07 Resp 20 09/06/23 07:07 BP 155/75 09/06/23 08:32 Pulse Ox 96 09/06/23 07:07 FiO2 Intake & Output 09/05/23 09/06/23 09/06/23 18:59 06:59 18:59 Other: Voiding Method Toilet Toilet Toilet # Voids 3 1 # Bowel Movements 1 - Exam Head normocephalic Neck supple Lungs clear to auscultation bilaterally no wheezing or crackles Heart regular rate and rhythm S1-S2, no rub or gallop Abdomen is soft nontender nondistended positive bowel sounds no hepatosplenomegaly Extremities no edema. Right knee dressing clean dry and intact Neuro alert and orientated to 3 - Labs CBC & Chem 7: 09/04/23 05:10 09/04/23 05:10 Assessment and Plan Assessment: 1. Right knee osteoarthritis status post total right knee arthroplasty 09/03/[address] Arriaza 2. History of essential hypertension. Patient having increased blood pressures postoperatively patient started on Coreg 3. History of hypothyroidism 4. History of cholecystectomy 5. Obesity DVT prophylaxis xarelto per orthopedic services Social work services, PT OT consulted for discharge planning Repeat labs ordered Thank you for this consultation we'll continue to follow patient closely throughout stay
[2023-09-06 11:54] LABS: Basophils # (A) 0.03 X 10*3/uL (0.00-0.10); Basophils % (A) 0.5 %; Eosinophils # (A) 0.05 X 10*3/uL (0.04-0.35); Eosinophils % (A) 0.8 %; HCT 31.2 % (37.2-46.3); HGB 10.2 g/dL (12.0-15.0); Lymphocytes # (A) 0.69 X 10*3/uL (0.90-5.00); Lymphocytes % (A) 11.5 %; MCH 31.2 pg (27.0-32.0); MCHC 32.7 g/dL (32.0-37.0); MCV 95.4 FL (80.0-97.0); Mean Platelet Volume 10.2 FL (9.5-12.2); Monocytes # (A) 0.46 X 10*3/uL (0.20-1.00); Monocytes % (A) 7.7 %; NRBC Per 100 WBC 0 X 10*3/uL (0.00-0.01); Neutrophils # (A) 4.75 X 10*3/uL (1.80-7.70); Platelet Count 255 X 10*3/uL (140-440); RBC 3.27 X 10*6/uL (4.10-5.20); RDW 13.9 % (11.5-14.5); WBC 6.01 X 10*3/uL (4.50-10.00)
[2023-09-06 12:07] LABS: ALT 10 U/L (8-44); AST 13 U/L (13-35); Albumin 3.4 g/dL (3.8-4.9); Albumin/Globulin Ratio 1.62 Ratio (1.60-3.17); Alkaline Phosphatase 88 U/L (41-126); BUN/Creat Ratio 18.83 Ratio (12.00-20.00); Blood Urea Nitrogen 11.3 mg/dL (9.0-27.0); Calcium 8.6 mg/dL (8.7-10.3); Carbon Dioxide 24.7 mmol/L (21.6-31.8); Chloride 104 mmol/L (96-109); Globulin 2.1 g/dL (1.6-3.3); Glucose 102 mg/dL (70-110); Potassium 3.6 mmol/L (3.5-5.5); Sodium 139 mmol/L (135-145); Total Bilirubin 0.6 mg/dL (0.3-1.2); Total Protein 5.5 g/dL (6.2-8.2)
--- NOTE | 2023-09-06 12:41 | P.DS ---
Providers Date of admission: 09/03/23 05:43 Expected date of discharge: 09/06/23 Attending physician: Mark Gracia Consults: 09/03/23 09:51 Consult Physician Routine Consulting Provider: Eliana Wade Consult Reason/Comments: medical management Do you want consulting provider notified?: Yes Primary care physician: Eliana Wade [place] Hospital Course: Diagnosis on discharge: 1. Right knee osteoarthritis status post total right knee arthroplasty 09/03/[address] Arriaza 2. History of essential hypertension. Patient having increased blood pressures postoperatively patient started on Coreg 3. History of hypothyroidism 4. History of cholecystectomy 5. Morbid Obesity Hospital course: Lupis Álvarez is a 73-year-old female patient who presented for an elective total right knee arthroplasty with Dr. Arriaza on 09/03/2023. Patient has past medical history of osteoarthritis to the right knee that has been worsening over the past few years failed conservative management. Patient is a past medical history of hypertension thyroid disorder and cholecystectomy. At this time patient is resting comfortably in bed. Patient denies chest pain or shortness breath. Patient denies nausea vomiting or diarrhea. Patient denies any urinary burning or frequency. Patient started on xarelto for DVT management per orthop edic services. Social work services PT and OT services consulted patient will likely need rehab upon discharge On 09/04/2023 patient oriented 3 currently postop day 1. Patient reports some discomfort to surgical site. Patient reports she has been up walking with physical therapy denies chest pain or shortness breath. Patient denies nausea vomiting or diarrhea. Patient denies any urinary burning or frequency. Current vital signs temp 90.8, heart rate 78, respiratory rate 18, blood pressure 163/75 and pulse ox 95% on room air. On 09/05/2023 patient was seen and examined on the medical floor she is alert and oriented 3 in no apparent distress she is postoperative day #2, she is complaining of knee pain and difficulty walking otherwise she denies any complaints at this time she has a low-grade fever of 99 however she denies any cough or burning with urination, will continue to monitor at this time, blood pressure has been significantly elevated, patient has been maintained on v alsartan time 160 mg daily, at this time she is also receiving IV hydralazine, however blood pressure is remaining elevated, I will add Coreg 3.125 mg by mouth twice daily and continue to monitor. Otherwise patient is denying any symptoms there is no fever or chills no headache or dizziness no chest pain no shortness of breath no cough no nausea or vomiting no abdominal pain no diarrhea and no ur inary symptoms. On 09/06/2023 patient is alert and oriented 3 currently sitting up in chair. Patient continuing to have elevated blood pressures. Coreg dose increased to 6.25. Social work services following for discharge planning. Patient denies chest pain or shortness of breath. Patient denies nausea vomiting or diarrhea. Patient denies any urinary burning or frequency . patient was accepted at [facility] for rehab, she will be discharged today. Plan - Discharge Summary Discharge Rx Participant: Yes New Discharge Prescriptions: New carvediloL [Coreg] 6.25 mg PO BID-W/MEALS #0 tab Continue Ergocalciferol [Vitamin D2 (DRISDOL)] 50,000 unit PO TU Levothyroxine Sodium 88 mcg PO DAILY Valsartan [Diovan] 160 mg PO DAILY Discontinued Meloxicam [Mobic] 15 mg PO DAILY Ciprofloxacin HCl [Cipro] 250 mg PO Q12H No Action HYDROcodone/APAP 10-325MG [[place] 10-325] 1 tab PO Q6H PRN PRN Reason: pain ALPRAZolam [Xanax] 0.25 mg PO TID PRN PRN Reason: Anxiety Discharge Medication List Ergocalciferol [Vitamin D2 (DRISDOL)] 50,000 unit PO TU 11/12/17 [History] HYDROcodone/APAP 10-325MG [[place] 10-325] 1 tab PO Q6H PRN 11/12/17 [History] Levothyroxine Sodium 88 mcg PO DAILY 11/12/17 [History] Valsartan [Diovan] 160 mg PO DAILY 04/20/22 [History] ALPRAZolam [Xanax] 0.25 mg PO TID PRN 08/30/23 [History] carvediloL [Coreg] 6.25 mg PO BID-W/MEALS #0 tab 09/06/23 [Rx] Follow up Appointment(s)/Referral(s): Andrea Rogers PAC [PHYSICIAN COLOR MIXER] - 09/26/23 9:10 am [facility], [NON-STAFF] - As Needed Eliana Wade MD [Primary Care Provider] - 1 Week Patient Instructions/Handouts: Knee Replacement (DC), Knee Replacement (GEN) Activity/Diet/Wound Care/Special Instructions: Orthopedic Discharge Instructions: 1. Wound care and infection precautions, keep incision dry and covered while showering, no lotions, creams, moisturizers. No soaking, pools, hot tubs. Do not scrub over incision. 2. Weight-bear as tolerated with walker / cane until follow-up. 3. Ice and elevate when necessary. Do not exceed 20 minutes per hour with ice pack. 4. Utilize compression sleeve until seen at first follow up appointment. 5. Pain meds and anticoagulants per prescription. 6. Pain medication has potential to cause constipation. Increase oral fluid and fiber intake. Contact primary care provider if you have not had a bowel movement within 48 hours after discharge. 7. No anti-inflammatory medication until discussed at first post operative visit, this including Motrin, Aleve, Mobic, Diclofenac. 8. Follow up in office at 2 weeks postop with Filiberto Amanda PA-C / Andrea Rogers PA-C 9. Follow up with your primary care doctor 7-10 days after discharge. 10. Contact [facility] with any questions, . Keep incision clean, dry, intact. While showering, cover fusion tape with Saran wrap. Keep fusion tape on until follow-up appointment in office at 2 weeks.
--- NOTE | 2023-09-06 13:20 | P.PN ---
Subjective Progress Note Date: 09/06/23 Principal diagnosis: status post right total knee arthroplasty Patient evaluated at bedside, she is resting in her hospital chair. She states the pain is improved since yesterday. Dural medicine is monitoring her blood pressure which continues to be elevated. Patient is still for discharge to rehab. Denies any nausea, vomiting, chest pain or shortness of breath Objective - Vital Signs Vital signs: Vital Signs Temp 98.2 F 09/06/23 07:07 Pulse 65 09/06/23 07:07 Resp 20 09/06/23 07:07 BP 155/75 09/06/23 08:32 Pulse Ox 96 09/06/23 07:07 FiO2 Intake & Output 09/05/23 09/06/23 09/06/23 18:59 06:59 18:59 Other: Voiding Method Toilet Toilet Toilet # Voids 3 1 # Bowel Movements 1 - Exam Right lower extremity: Incision is clean, dry, and intact. The exofin fusion tape is in good condition. There is minimal soft tissue swelling and ecchymosis surrounding the medial and lateral aspects of the incision. Calf is soft, no tenderness with palpation. Plantar flexion, dorsiflexion, EHL, FHL are intact. Sensory exam to light touch throughout the extremity is intact, dorsal pedis pulses 2+. - Labs CBC & Chem 7: 09/06/23 07:16 09/06/23 07:16 Labs: Abnormal Lab Results - Last 24 Hours (Table) 09/06/23 09/06/23 Range/Units 07:16 07:16 RBC 3.27 L (4.10-5.20) X 10*6/uL Hgb 10.2 L (12.0-15.0) g/dL Hct 31.2 L (37.2-46.3) % Lymphocytes # 0.69 L (0.90-5.00) X 10*3/uL Calcium 8.6 L (8.7-10.3) mg/dL Total Protein 5.5 L (6.2-8.2) g/dL Albumin 3.4 L (3.8-4.9) g/dL Assessment and Plan Assessment: Postoperative day #3 status post right total knee arthroplasty Plan: Pain control, plan for discharge on oral medications DVT prophylaxis, continue current medications Ice and elevate the extremity often Encourage incentive spirometer Weight-bear as tolerated with walker Medical recommendations appreciated Discharge planning: Stable for discharge to rehab today Time with Patient: Less than 30
[2023-09-06] MEDS ORDERED: carvediloL 6.25 MG TAB PO SCH (17:30)
== END 2023-09-06 13:56 | DRG 470 ==
LOC: OR 05:41 → 4SSUR 05:42 → OBSVTOIN 05:43 → 4SSUR 09:45
PROVIDERS: ADMIT Orthopaedic Surgery; ATTEND Orthopaedic Surgery
PROC: 3E0T3BZ Introduction of Anesthetic Agent into Peripheral Nerves and Plexi, Percutaneous Approach (ICD-10-PCS; 2023-09-03)
PROC: 0SRC0J9 Replacement of Right Knee Joint with Synthetic Substitute, Cemented, Open Approach (ICD-10-PCS; principal; 2023-09-03 07:30)
DX: M17.11 Unilateral primary osteoarthritis, right knee (principal); Z68.41 Body mass index [BMI] 40.0-44.9, adult; E03.9 Hypothyroidism, unspecified; I10 Essential (primary) hypertension; R50.82 Postprocedural fever; Z79.1 Long term (current) use of non-steroidal anti-inflammatories (NSAID); Z79.890 Hormone replacement therapy; Z90.49 Acquired absence of other specified parts of digestive tract; Z90.710 Acquired absence of both cervix and uterus; Z98.84 Bariatric surgery status; E66.01 Morbid (severe) obesity due to excess calories; Z79.899 Other long term (current) drug therapy; Z98.42 Cataract extraction status, left eye; Z98.41 Cataract extraction status, right eye
CPT/HCPCS: 64448; 64999; 80053; 85025; 94760

== ENCOUNTER → 2023-11-01 | Outpatient (CLI) | payer MEDICARE ==
--- NOTE | 2023-11-01 20:37 | MM ---
Reason for Exam: Screening (asymptomatic). Last mammogram was performed 1 year(s) and 3 month(s) ago. Patient History: Menarche at age 11. First Full-Term at age 19. Hysterectomy at age 25. Postmenopausal. 01/23/2000, Benign Excisional Biopsy on the left side. Risk Values: Amalia 5 year model risk: 1.7%. NCI Lifetime model risk: 4.1%. Prior Study Comparison: 08/05/2000 Left Diagnostic Mammogram, [facility]. 03/03/2021 Bilateral Screening Mammogram, Unknown. 08/03/2022 Bilateral MG 3D screening mammo w/cad, Unknown. Tissue Density: There are scattered fibroglandular densities. Findings: Analyzed By CAD. Small area of nodularity inferiorly on the right MLO view at a posterior depth may relate to overlapping vascularity. Further evaluation is recommended. Otherwise, no significant change. Overall Assessment: Incomplete: need additional imaging evaluation, BI-RAD 0 Management: Special View Mammogram of the right breast. Diagnostic Breast Ultrasound of the right breast. Additional views to include spot 3-D MLO and 3-D lateral views. Targeted right breast ultrasound if any persisting abnormality. [facility] will attempt to contact patient to return for supplemental views and ultrasound if indicated. Electronically signed and approved by: Barry Gonsalez M.D. Radiologist
== END | disposition home or self-care (01) ==
LOC: RADMAMWWP 07:15
PROVIDERS: ATTEND Internal Medicine
DX: Z12.31 Encounter for screening mammogram for malignant neoplasm of breast (principal); Z78.0 Asymptomatic menopausal state
CPT/HCPCS: 77067

== ENCOUNTER → 2023-11-07 | Outpatient (CLI) | payer MEDICARE ==
--- NOTE | 2023-11-07 13:01 | MM ---
Reason for Exam: Additional evaluation requested from abnormal screening. Last screening mammogram was performed less than 1 month ago. Patient History: Menarche at age 11. First Full-Term at age 19. Hysterectomy at age 25. Postmenopausal. 01/23/2000, Benign Excisional Biopsy on the left side. Risk Values: Amalia 5 year model risk: 1.7%. NCI Lifetime model risk: 4.1%. Prior Study Comparison: 03/03/2021 Bilateral Screening Mammogram, Unknown. 08/03/2022 Bilateral MG 3D screening mammo w/cad, Unknown. 11/01/2023 Bilateral MG screening mammo w CAD, [facility]. Tissue Density: Right: There are scattered fibroglandular densities. Findings: Analyzed By CAD. The questioned area of posterior inferior nodularity does not persist on additional views. Findings felt to have related to tortuous vascularity. The more anterior area of lower inner nodularity is unchanged. Overall Assessment: Benign, BI-RAD 2 Management: Screening Mammogram of both breasts in 1 year. . Results were given to the patient verbally at the time of exam. Patient should continue monthly self-breast exams. A clinical breast exam by your physician is recommended on an annual basis. This exam should not preclude additional follow-up of suspicious palpable abnormalities. Note on Amalia scores and lifetime risk: 1. A Amalia score greater than 3% is considered moderate risk. If this is the case, consider specialist referral to assess eligibility for a risk reducing agent. 2. If overall lifetime risk for the development of breast cancer is 20% or higher, the patient may qualify for future screening with alternating mammogram and breast MRI. Electronically signed and approved by: Barry Gonsalez M.D. Radiologist
== END | disposition home or self-care (01) ==
LOC: RADMAMWWP 12:15
PROVIDERS: ATTEND Internal Medicine
DX: R92.323 Mammographic fibroglandular density, bilateral breasts (principal); Z78.0 Asymptomatic menopausal state; Z90.710 Acquired absence of both cervix and uterus
CPT/HCPCS: 77061; 77065

== ENCOUNTER 2024-04-24 14:40 | Inpatient (IN) | payer MEDICARE ==
--- NOTE | 2024-04-24 15:11 | ED ---
General Adult HPI - General Chief complaint: Chest Pain Stated complaint: chest pain,nausea Time Seen by Provider: 04/24/24 14:51 Source: patient Mode of arrival: wheelchair Limitations: no limitations - History of Present Illness Initial comments: Dictation was produced using [employer] dictation software. please excuse any grammatical, word or spelling errors. Chief Complaint: 74-year-old female past medical history of hypertension presents with 1 week of chest pressure History of Present Illness: Patient 74-year-old female presents to the emergency department 1 week of chest pressure states that the pressure is substernal seems to be triggered by exertion. States that it is also slight with diaphoresis and nausea. Patient denies any cardiac comorbidities. She denies any family history of heart attacks. No history of tobacco use. Patient has never seen a terminal supervisor for any other reason in the past. Denies any chest pain at the bedside. The ROS documented in this emergency department record has been reviewed and confirmed by me. Those systems with pertinent positive or negative responses have been documented in the HPI. All other systems are other negative and/or noncontributory. - Related Data Home Medications Medication Instructions Recorded Confirmed Ergocalciferol [Vitamin D2 50,000 unit PO TU 11/12/17 09/03/23 (DRISDOL)] HYDROcodone/APAP 10-325MG [[place] 1 tab PO Q6H PRN 11/12/17 09/03/23 10-325] Levothyroxine Sodium 88 mcg PO DAILY 11/12/17 09/03/23 Valsartan [Diovan] 160 mg PO DAILY 04/20/22 09/03/23 ALPRAZolam [Xanax] 0.25 mg PO TID PRN 08/30/23 09/03/23 Previous Rx's Medication Instructions Recorded HYDROcodone/APAP 7.5-325MG [[place] 1 each PO Q6HR PRN #28 tab 09/06/23 7.5] Rivaroxaban [Xarelto] 10 mg PO DAILY #12 tab 09/06/23 Sennosides/Docusate Sodium 2 each PO DAILY PRN #30 tablet 09/06/23 [Senna-S 8.6-50 mg Tablet] carvediloL [Coreg] 6.25 mg PO BID-W/MEALS #0 tab 09/06/23 Allergies Allergy/AdvReac Type Severity Reaction Status Date / Time No Known Allergies Allergy Verified 09/03/23 06:19 Review of Systems ROS Statement: Those systems with pertinent positive or pertinent negative responses have been documented in the HPI. ROS Other: All systems not noted in ROS Statement are negative. Past Medical History Past Medical History: Hypertension, Osteoarthritis (OA), Thyroid Disorder Additional Past Medical History / Comment(s): BACK PAIN, HX OF "STOMACH STAPLING"., BILATERAL CATARACTS., History of Any Multi-Drug Resistant Organisms: None Reported Past Surgical History: Back Surgery, Bariatric Surgery, Cholecystectomy, Hysterectomy, Joint Replacement, Orthopedic Surgery Additional Past Surgical History / Comment(s): left knee replacment, "stomach staple x 3 " ([id number]) , COLONOSCOPY lyndsay cataracts Past Anesthesia/Blood Transfusion Reactions: No Reported Reaction Past Psychological History: No Psychological Hx Reported Smoking Status: Never smoker - Past Family History Mother Family Medical History: Diabetes Mellitus Brother(s) Family Medical History: Diabetes Mellitus General Exam - General Exam Comments Initial Comments: PHYSICAL EXAM: General Impression: Alert and oriented x3, not in acute distress HEENT: Normocephalic atraumatic, extra-ocular movements intact, pupils equal and reactive to light bilaterally, mucous membranes moist. Cardiovascular: Heart regular rate and rhythm Chest: Able to complete full sentences, no retractions, no tachypnea Abdomen: abdomen soft, non-tender, non-distended, no organomegaly Musculoskeletal: Pulses present and equal in all extremities, no peripheral edema Motor: no focal deficits noted Neurological: CN II-XII grossly intact, no focal motor or sensory deficits noted Skin: Intact with no visualized rashes Psych: Normal affect and mood Limitations: no limitations Course Vital Signs 04/24/24 04/24/24 14:45 15:42 Temperature 98 F Pulse Rate 91 74 Respiratory 16 16 Rate Blood Pressure 121/78 111/75 O2 Sat by Pulse 97 99 Oximetry EKG Findings - EKG Comments: EKG Findings:: My EKG interpretation: Ventricular rate 89, sinus rhythm, LA interval 160, cures 94, QTc 399. No LA prolongation, no QTC prolongation, no ST or T-wave changes noted. Overall, this EKG is unremarkable Medical Decision Making - Medical Decision Making Was pt. sent in by a medical professional or institution (, PA, ARCHITECT IN TRAINING, urgent care, hospital, or snf...) When possible be specific @ -No Did you speak to anyone other than the patient for history (EMS, parent, family, police, friend...)? What history was obtained from this source @ -No Did you review nursing and triage notes (agree or disagree)? Why? @ -I reviewed and agree with nursing and triage notes Were old charts reviewed (outside hosp., previous admission, EMS record, old EKG, old radiological studies, urgent care reports/EKG's, snf records)? Report findings @ -No old charts were reviewed Differential Diagnosis (chest pain, altered mental status, abdominal pain women, abdominal pain men, vaginal bleeding, musculoskeletal, weakness, fever, dyspnea, syncope, headache, dizziness, GI bleed, back pain, seizure, CVA, palpatations, mental health)? @ -Differential Chest Pain: Stable Angina, Unstable Angina, STEMI, NSTEMI Aortic Dissection, Pneumothorax, Musculoskeletal, Esophageal Spasm GERD, Cholecystitis, Pancreatitis, Zoster, this is not meant to be an all-inclusive list. EKG interpreted by me (3pts min.). @ -See above X-rays interpreted by me (1pt min.). @ -Chest x-ray is nonacute CT interpreted by me (1pt min.). @ -None done U/S interpreted by me (1pt. min.). @ -None done What testing was considered but not performed or refused? (CT, X-rays, U/S, labs)? Why? @ -None What meds were considered but not given or refused? Why? @ -None Was smoking cessation discussed for >3mins.? @ -No Were there social determinants of health that impacted care today? How? (Homelessness, low income, unemployed, alcoholism, drug addiction, transport ation, low edu. Level, literacy, decrease access to med. care, retirement, rehab)? @ -No Was there de-escalation of care discussed even if they declined (Discuss DNR or withdrawal of care, Hospice)? DNR status @ -No What co-morbidities impacted this encounter? (DM, HTN, Smoking, COPD, CAD, Cancer, CVA, ARF, Chemo, Hep., AIDS, mental health diagnosis, sleep apnea, morbid obesity)? @ -None Was patient admitted / discharged? Hospital course, mention meds given and route, prescriptions, significant lab abnormalities, going to OR and other pertinent info. @ -74-year-old female with symptoms suspicious for acute coronary syndrome. Vital signs upon arrival are within acceptable limits. Patient asymptomatic at the bedside however she does present a classic HPI for acute coronary syndrome. EKG shows no signs of ischemia infarction. Laboratory evaluation obtained. Elevated troponin 0.02. Sodium 123. Patient with IV fluids and aspirin. Patient started on heparin for unstable angina. Patient reevaluated bedside at 4:45 PM still pain-free. Patient admitted consultation cardiology. Did you discuss the management of the patient with other professionals (professionals i.e. , PA, ARCHITECT IN TRAINING, lab, RT, psych nurse, social media strategist, supervisor inspection and testing, teacher, air defence officer, spring encaser)? Give summary @ -Case discussed with hospitalist for admission Was critical care preformed (if so, how long)? @ -Yes, 33 minutes Undiagnosed new problem with uncertain prognosis? @ -No Drug Therapy requiring intensive monitoring for toxicity (Heparin, Nitro, Insulin, Cardizem)? @ -No Were any procedures done? @ -No Diagnosis/symptom? Acute, or Chronic, or Acute on Chronic? Uncomplicated (without systemic symptoms) or Complicated (systemic symptoms)? @ -Acute coronary syndrome, hyponatremia Side effects of treatment? @ -No Exacerbation, Progression, or Severe Exacerbation? @ -No Poses a threat to life or bodily function? How? (Chest pain, [place], CA, pneumonia, PE, COPD, DKA, ARF, appy, cholecystitis, CVA, Diverticulitis, Homicidal, Suicidal, threat to staff... and all critical care pts) @ -yes - Lab Data Result diagrams: 04/24/24 15:12 04/24/24 15:12 Lab Results 04/24/24 04/24/24 04/24/24 Range/Units 15:12 15:12 15:12 WBC 5.9 (3.8-10.6) k/uL RBC 4.30 (3.80-5.40) m/uL Hgb 13.8 (11.4-16.0) gm/dL Hct 41.4 (34.0-46.0) % MCV 96.1 (80.0-100.0) fL MCH 32.0 (25.0-35.0) pg MCHC 33.2 (31.0-37.0) g/dL RDW 14.3 (11.5-15.5) % Plt Count 278 (150-450) k/uL MPV 8.0 Neutrophils % 72 % Lymphocytes % 19 % Monocytes % 5 % Eosinophils % 3 % Basophils % 0 % Neutrophils # 4.2 (1.3-7.7) k/uL Lymphocytes # 1.1 (1.0-4.8) k/uL Monocytes # 0.3 (0-1.0) k/uL Eosinophils # 0.2 (0-0.7) k/uL Basophils # 0.0 (0-0.2) k/uL PT 10.4 (10.0-12.5) sec INR 0.9 (<1.2) APTT 24.5 (22.0-30.0) sec Sodium 123 L (137-145) mmol/L Potassium 4.8 (3.5-5.1) mmol/L Chloride 94 L (98-107) mmol/L Carbon Dioxide 23 (22-30) mmol/L Anion Gap 6 mmol/L BUN 19 H (7-17) mg/dL Creatinine 0.90 (0.52-1.04) mg/dL Est GFR (CKD-EPI)AfAm 73 (>60 ml/min/1.73 sqM) Est GFR (CKD-EPI)NonAf 64 (>60 ml/min/1.73 sqM) Glucose 104 H (74-99) mg/dL Calcium 9.2 (8.4-10.2) mg/dL Magnesium 2.0 (1.6-2.3) mg/dL Total Bilirubin 1.2 (0.2-1.3) mg/dL AST 46 H (14-36) U/L ALT 17 (4-34) U/L Alkaline Phosphatase 79 (38-126) U/L Troponin I (0.000-0.034) ng/mL Total Protein 7.0 (6.3-8.2) g/dL Albumin 4.4 (3.5-5.0) g/dL 04/24/24 Range/Units 15:12 WBC (3.8-10.6) k/uL RBC (3.80-5.40) m/uL Hgb (11.4-16.0) gm/dL Hct (34.0-46.0) % MCV (80.0-100.0) fL MCH (25.0-35.0) pg MCHC (31.0-37.0) g/dL RDW (11.5-15.5) % Plt Count (150-450) k/uL MPV Neutrophils % % Lymphocytes % % Monocytes % % Eosinophils % % Basophils % % Neutrophils # (1.3-7.7) k/uL Lymphocytes # (1.0-4.8) k/uL Monocytes # (0-1.0) k/uL Eosinophils # (0-0.7) k/uL Basophils # (0-0.2) k/uL PT (10.0-12.5) sec INR (<1.2) APTT (22.0-30.0) sec Sodium (137-145) mmol/L Potassium (3.5-5.1) mmol/L Chloride (98-107) mmol/L Carbon Dioxide (22-30) mmol/L Anion Gap mmol/L BUN (7-17) mg/dL Creatinine (0.52-1.04) mg/dL Est GFR (CKD-EPI)AfAm (>60 ml/min/1.73 sqM) Est GFR (CKD-EPI)NonAf (>60 ml/min/1.73 sqM) Glucose (74-99) mg/dL Calcium (8.4-10.2) mg/dL Magnesium (1.6-2.3) mg/dL Total Bilirubin (0.2-1.3) mg/dL AST (14-36) U/L ALT (4-34) U/L Alkaline Phosphatase (38-126) U/L Troponin I 0.020 (0.000-0.034) ng/mL Total Protein (6.3-8.2) g/dL Albumin (3.5-5.0) g/dL Disposition Clinical Impression: Hyponatremia, Acute coronary syndrome Disposition: ADMITTED IP TO THIS [facility] Condition: Serious Referrals: None,Stated [REFERRING] - 1-2 days Decision Time: 16:44
--- NOTE | 2024-04-24 15:31 | XR ---
EXAMINATION TYPE: XR chest 2V DATE OF EXAM: 04/24/2024 COMPARISON: 11/18/2017 HISTORY: Chest pain TECHNIQUE: Frontal and lateral views of the chest are obtained. FINDINGS: There is no focal air space opacity, pleural effusion, or pneumothorax seen. The cardiac silhouette size is within normal limits. The osseous structures are intact. IMPRESSION: No acute cardiopulmonary process.
[2024-04-24 15:38] LABS: Basophils % (A) 0 %; Eosinophils # (A) 0.2 k/uL (0-0.7); Eosinophils % (A) 3 %; HCT 41.4 % (34.0-46.0); HGB 13.8 gm/dL (11.4-16.0); Lymphocytes # (A) 1.1 k/uL (1.0-4.8); Lymphocytes % (A) 19 %; MCHC 33.2 g/dL (31.0-37.0); MCV 96.1 fL (80.0-100.0); Monocytes # (A) 0.3 k/uL (0-1.0); Monocytes % (A) 5 %; Neutrophils # (A) 4.2 k/uL (1.3-7.7); Neutrophils % (A) 72 %; Platelet Count 278 k/uL (150-450); RDW 14.3 % (11.5-15.5); WBC 5.9 k/uL (3.8-10.6)
[2024-04-24] MEDS: ASPIRIN 81 MG PO STA (15:41)
[2024-04-24 15:59] LABS: INR 0.9 (<1.2); Partial Thromboplastin Time 24.5 sec (22.0-30.0); Prothrombin Time 10.4 sec (10.0-12.5)
[2024-04-24 16:00] LABS: African American GFR (CKD) 73 (>60 ml/min/1.73 sqM); Albumin 4.4 g/dL (3.5-5.0); Anion Gap 6 mmol/L; Blood Urea Nitrogen 19 mg/dL (7-17); Calcium 9.2 mg/dL (8.4-10.2); Carbon Dioxide 23 mmol/L (22-30); Chloride 94 mmol/L (98-107); Glucose 104 mg/dL (74-99); Non-African American GFR(CKD) 64 (>60 ml/min/1.73 sqM); Sodium 123 mmol/L (137-145)
[2024-04-24 16:05] LABS: AST 46 U/L (14-36); Potassium 4.8 mmol/L (3.5-5.1); Total Bilirubin 1.2 mg/dL (0.2-1.3)
[2024-04-24 16:11] LABS: ALT 17 U/L (4-34); Alkaline Phosphatase 79 U/L (38-126)
[2024-04-24] MEDS ORDERED: NITROGLYCERIN SL TABS 0.4 MG TAB SUBLINGUAL PRN (16:39)
[2024-04-24] MEDS ORDERED: HEPARIN SODIUM 1,000 UN/ML (10ML VL) IV PRN (16:40)
[2024-04-24] MEDS: HEPARIN SODIUM 1,000 UN/ML (10ML VL) IV ONE (17:09)
[2024-04-24] MEDS: HEPARIN SOD,PORK IN 0.45% NACL 25,000 UNIT in 0.45% NACL 1 250ML.BAG IV SCH (17:10)
[2024-04-24] MEDS: SODIUM CHLORIDE 0.9% 1,000 ML IV STA (17:12)
[2024-04-25 09:41] LABS: Chol/HDL Ratio 1.99 Ratio; LDL Cholesterol,Calculated 83.4 mg/dL (0.0-131.0); VLDL Calculation 13.96 mg/dL (5.00-40.00)
[2024-04-25] MEDS ORDERED: ALPRAZolam 0.5 MG TAB PO PRN (09:43)
[2024-04-25] MEDS ORDERED: NITROGLYCERIN SL TABS 0.4 MG TAB SUBLINGUAL PRN (09:43)
[2024-04-25] MEDS ORDERED: ALPRAZolam 0.25 MG TAB PO PRN ×2 (09:43→11:00)
--- NOTE | 2024-04-25 10:32 | P.CRDCN ---
History of Present Illness Consult date: 04/25/24 Consult reason: chest pain History of present illness: This is a 74-year-old female patient with past medical history of hypertension. 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 We have been asked to evaluate the patient for chest pain. Patient presented to the hospital due to chest pain that been going on for 1 week, worse with exertion. Patient also states that she has nausea for the past week along with hot sweats and a little pressure to the chest. She is a lifelong non-smoker, she drinks alcohol occasionally. No marijuana or illicit drug use. The chest pain gradually worsened and that is why she came into the hospital. Patient is s/p aspirin, started on heparin drip and seen today on the observation unit. Blood pressure 126/71, heart rate 51, pulse ox 97% on room air. Discussed cardiac catheterization with the patient and she is agreeable to move forward with this. EKG: Sinus rhythm with no acute ST-T wave changes. Chest x-ray: No acute process. Laboratory studies: Hemoglobin 13.8. BUN 19 creatinine 0.9. Troponins negative x 3. AST 46, sodium 123, potassium 4.8. Home cardiac medications: Coreg 6.25 mg twice daily, valsartan/hydrochlorothiazide 160-12.5 mg daily, also on levothyroxine 100 mcg daily Review Of Systems: At the time of my exam: CONSTITUTIONAL: Denies fever or chills. HEENT: Denies blurred vision, vision changes, or eye pain. Denies hemoptysis CARDIOVASCULAR: Denies chest pain. Denies orthopnea. Denies PND. Denies palpitations RESPIRATORY: Denies shortness of breath. GASTROINTESTINAL: Denies abdominal pain. Denies nausea or vomiting. HEMATOLOGIC: Denies bleeding disorders. GENITOURINARY: Denies any blood in urine. SKIN: Denies puritis. Denies rash. Physical examination: Gen: This is a 74-year-old morbidly obese female in no acute distress VS: reviewed HEENT: Head is atraumatic, normocephalic. Pupils equal, round. Sclerae is anicteric. NECK: Supple. No JVD. LUNGS: Clear to auscultation. No wheezes or rhonchi. No intercostal retractions. HEART: Regular rate and rhythm. No murmur. ABDOMEN: Soft No tenderness. EXTREMITIES: No pedal edema. No calf tenderness. NEUROLOGICAL: Patient is awake, alert and oriented x3. Assessment: Unstable angina Hypertension Morbid obesity with BMI of 41 Plan: Resume patient's home cardiac medications Schedule patient for left heart catheterization today with Dr. Giron Obtain 2-D echocardiogram and Doppler study to assess cardiac structure and function Further recommendations to follow based upon clinical course Thank you kindly for this consultation. Nurse practitioner note has been reviewed, I agree with documented findings and plan of care. Patient was seen and examined. Past Medical History Past Medical History: Hypertension, Osteoarthritis (OA) Additional Past Medical History / Comment(s): BACK PAIN, HX OF "STOMACH STAPLING" History of Any Multi-Drug Resistant Organisms: None Reported Past Surgical History: Back Surgery, Bariatric Surgery, Cholecystectomy, Hysterectomy, Joint Replacement, Orthopedic Surgery Additional Past Surgical History / Comment(s): left knee replacment, "stomach staple x 3 " (DR [id number]) , COLONOSCOPY . cateracts removed Past Anesthesia/Blood Transfusion Reactions: No Reported Reaction Past Psychological History: No Psychological Hx Reported Smoking Status: Never smoker Past Alcohol Use History: Occasional Past Drug Use History: Marijuana Additional Drug Use History / Comment(s): OCCASIONAL USE- TO HOLD MARIJUANA 24 HOURS PRIOR TO PROCEDURE - Past Family History Mother Family Medical History: Diabetes Mellitus Brother(s) Family Medical History: Diabetes Mellitus Medications and Allergies Home Medications Medication Instructions Recorded Confirmed Type Ergocalciferol [Vitamin D2 1,250 mcg PO TU 11/12/17 04/24/24 History (LEWIS)] HYDROcodone/APAP 10-325MG [[place] 1 tab PO Q8H PRN 11/12/17 04/24/24 History 10-325] ALPRAZolam [Xanax] 0.25 mg PO TID PRN 08/30/23 04/24/24 History carvediloL [Coreg] 6.25 mg PO BID-W/MEALS #0 tab 09/06/23 04/24/24 Rx Levothyroxine Sodium [Synthroid] 100 mcg PO DAILY 04/24/24 04/24/24 History Meloxicam [Mobic] 15 mg PO DAILY 04/24/24 04/24/24 History Valsartan/Hydrochlorothiazide 1 tab PO DAILY 04/24/24 04/24/24 History [Diovan Hct 160-12.5 mg Tab] Allergies Allergy/AdvReac Type Severity Reaction Status Date / Time No Known Allergies Allergy Verified 09/03/23 06:19 Physical Exam Vitals: Vital Signs Temp Pulse Pulse Resp BP BP Pulse Ox 04/25/24 07:00 97.7 F 51 L 16 126/71 97 04/25/24 02:00 97.5 F L 53 L 16 134/70 99 04/24/24 23:39 97.5 F L 45 L 16 155/75 99 04/24/24 20:39 56 L 16 153/77 97 04/24/24 18:23 58 L 16 171/71 100 04/24/24 15:42 74 16 111/75 99 04/24/24 14:45 98 F 91 16 121/78 97 Intake and Output 04/24/24 04/25/24 04/25/24 22:59 06:59 14:59 Intake Total 132.167 Balance 132.167 Intake: Intake, IV Titration 132.167 Amount Heparin Sod,Pork in 0.45% 132.167 NaCl 25,000 unit In 0.45 % NaCl 1 250ml.bag @ 8. 8185 UNITS/KG/HR 10 mls/ hr IV .Q24H [facility] Rx#: [id number] Other: # Voids 1 Weight 113.398 kg Results 04/24/24 15:12 04/24/24 15:12 Cardiac Enzymes 04/24/24 04/24/24 04/24/24 Range/Units 15:12 15:12 18:01 AST 46 H (14-36) U/L Troponin I 0.020 <0.012 (0.000-0.034) ng/mL 04/24/24 Range/Units 20:43 AST (14-36) U/L Troponin I <0.012 (0.000-0.034) ng/mL Coagulation 04/24/24 04/24/24 04/25/24 Range/Units 15:12 23:51 05:26 PT 10.4 (10.0-12.5) sec APTT 24.5 69.5 H 73.1 H (22.0-30.0) sec CBC 04/24/24 Range/Units 15:12 WBC 5.9 (3.8-10.6) k/uL RBC 4.30 (3.80-5.40) m/uL Hgb 13.8 (11.4-16.0) gm/dL Hct 41.4 (34.0-46.0) % Plt Count 278 (150-450) k/uL Comprehensive Metabolic Panel 04/24/24 Range/Units 15:12 Sodium 123 L (137-145) mmol/L Potassium 4.8 (3.5-5.1) mmol/L Chloride 94 L (98-107) mmol/L Carbon Dioxide 23 (22-30) mmol/L BUN 19 H (7-17) mg/dL Creatinine 0.90 (0.52-1.04) mg/dL Glucose 104 H (74-99) mg/dL Calcium 9.2 (8.4-10.2) mg/dL AST 46 H (14-36) U/L ALT 17 (4-34) U/L Alkaline Phosphatase 79 (38-126) U/L Total Protein 7.0 (6.3-8.2) g/dL Albumin 4.4 (3.5-5.0) g/dL Current Medications Generic Name Dose Route Start Last Admin Trade Name Freq PRN Reason Stop Dose Admin Aspirin 325 mg 04/25/24 09:00 Aspirin 325 Mg Tab PO DAILY [facility] Heparin Sodium (Porcine) 0 unit 04/24/24 16:40 Heparin Sodium 1,000 Un/Ml (10ml Vl) IV PER PROTOCOL PRN Low PTT Protocol Heparin Sodium/Sodium Chloride 250 mls @ 10 mls/hr 04/24/24 16:45 04/25/24 06:23 25,000 unit/ Sodium Chloride IV 8.82 units/kg/hr .Q24H [facility] 10 mls/hr Titration Protocol 8.8185 UNITS/KG/HR Nitroglycerin 0.4 mg 04/24/24 16:39 Nitroglycerin Sl Tabs 0.4 Mg Tab SUBLINGUAL Q5M PRN Chest Pain Intake and Output 04/24/24 04/25/24 04/25/24 22:59 06:59 14:59 Intake Total 132.167 Balance 132.167 Intake: Intake, IV Titration 132.167 Amount Heparin Sod,Pork in 0.45% 132.167 NaCl 25,000 unit In 0.45 % NaCl 1 250ml.bag @ 8. 8185 UNITS/KG/HR 10 mls/ hr IV .Q24H [facility] Rx#: [id number] Other: # Voids 1 Weight 113.398 kg 04/24/24 15:12 04/24/24 15:12
[2024-04-25] MEDS: ATORVASTATIN 80 MG TAB PO STA (10:36)
[2024-04-25] MEDS: ASPIRIN 325 MG TAB PO STA (10:36)
[2024-04-25] MEDS: ASPIRIN 325 MG TAB PO SCH (10:51)
--- NOTE | 2024-04-25 11:03 | P.HPIM ---
History of Present Illness H&P Date: 04/25/24 Lupis Álvarez, is a 74-year-old female who presented to [facility] emergency room with a chief complaint of chest pain, patient describes a pressure sensation in the lower sternal area, pain resolved when patient was in the emergency room, no recurrent episodes of pain since admission. She was evaluated in the emergency room vital examination on presentation revealed a temperature of 98 pulse 91 respiration 16 blood pressure 121/78 pulse ox 97% on room air Laboratory data reveals a white blood count of 5.9 hemoglobin 13.8 platelet count 278 sodium 123 potassium 4.8 chloride 94 CO2 23 BUN 19 creatinine 0.9 AST 46 ALT 17 troponin level 0.02 Testing in the emergency room revealed EKG revealed sinus rhythm with low QRS voltage in precordial leads chest x-ray revealed no acute cardiopulmonary process Patient was admitted to medical floor for further evaluation and treatment, cardiology consultation was requested. Past Medical History Past Medical History: Hypertension, Osteoarthritis (OA) Additional Past Medical History / Comment(s): BACK PAIN, HX OF "STOMACH STAPLING" History of Any Multi-Drug Resistant Organisms: None Reported Past Surgical History: Back Surgery, Bariatric Surgery, Cholecystectomy, Hysterectomy, Joint Replacement, Orthopedic Surgery Additional Past Surgical History / Comment(s): left knee replacment, "stomach staple x 3 " (DR [id number]) , COLONOSCOPY . cateracts removed Past Anesthesia/Blood Transfusion Reactions: No Reported Reaction Past Psychological History: No Psychological Hx Reported Smoking Status: Never smoker Past Alcohol Use History: Occasional Past Drug Use History: Marijuana Additional Drug Use History / Comment(s): OCCASIONAL USE- TO HOLD MARIJUANA 24 HOURS PRIOR TO PROCEDURE - Past Family History Mother Family Medical History: Diabetes Mellitus Brother(s) Family Medical History: Diabetes Mellitus Medications and Allergies Home Medications Medication Instructions Recorded Confirmed Type Ergocalciferol [Vitamin D2 1,250 mcg PO TU 11/12/17 04/24/24 History (DRISDOL)] HYDROcodone/APAP 10-325MG [[place] 1 tab PO Q8H PRN 11/12/17 04/24/24 History 10-325] ALPRAZolam [Xanax] 0.25 mg PO TID PRN 08/30/23 04/24/24 History carvediloL [Coreg] 6.25 mg PO BID-W/MEALS #0 tab 09/06/23 04/24/24 Rx Levothyroxine Sodium [Synthroid] 100 mcg PO DAILY 04/24/24 04/24/24 History Meloxicam [Mobic] 15 mg PO DAILY 04/24/24 04/24/24 History Valsartan/Hydrochlorothiazide 1 tab PO DAILY 04/24/24 04/24/24 History [Diovan Hct 160-12.5 mg Tab] Allergies Allergy/AdvReac Type Severity Reaction Status Date / Time No Known Allergies Allergy Verified 09/03/23 06:19 Physical Exam Vitals: Vital Signs Temp Pulse Pulse Resp BP BP Pulse Ox 04/25/24 07:00 97.7 F 51 L 16 126/71 97 04/25/24 02:00 97.5 F L 53 L 16 134/70 99 04/24/24 23:39 97.5 F L 45 L 16 155/75 99 04/24/24 20:39 56 L 16 153/77 97 04/24/24 18:23 58 L 16 171/71 100 04/24/24 15:42 74 16 111/75 99 04/24/24 14:45 98 F 91 16 121/78 97 Intake and Output 04/24/24 04/25/24 04/25/24 22:59 06:59 14:59 Intake Total 132.167 Balance 132.167 Intake: Intake, IV Titration 132.167 Amount Heparin Sod,Pork in 0.45% 132.167 NaCl 25,000 unit In 0.45 % NaCl 1 250ml.bag @ 8. 8185 UNITS/KG/HR 10 mls/ hr IV .Q24H [facility] Rx#: [id number] Other: # Voids 1 Weight 113.398 kg In general patient is alert and oriented x 3 in no distress HEENT head normocephalic and atraumatic Neck is supple no JVD no goiter no lymphadenopathy no carotid bruit Chest examination is clear to auscultation no crackles no wheezing Cardiac exam reveals regular heart sounds S1 and S2 no gallops no murmurs Abdomen is soft nontender no organomegaly with normal bowel sounds Extremity exam reveals no edema no cyanosis or clubbing Neurological examination reveals no gross focal deficits Results CBC & Chem 7: 04/24/24 15:12 04/24/24 15:12 Labs: Abnormal Lab Results - Last 24 Hours (Table) 04/24/24 04/24/24 04/25/24 Range/Units 15:12 23:51 05:26 APTT 69.5 H 73.1 H (22.0-30.0) sec Sodium 123 L (137-145) mmol/L Chloride 94 L (98-107) mmol/L BUN 19 H (7-17) mg/dL Glucose 104 H (74-99) mg/dL AST 46 H (14-36) U/L Thrombosis Risk Factor Assmnt - Choose All That Apply Any of the Below Risk Factors Present?: Yes Each Factor Represents 1 point: Obesity (BMI >25), Swollen legs (current) Other Risk Factors: Yes Each Risk Factor Represents 2 Points: Age 61-74 years Other congenital or acquired thrombophilia - If yes, enter type in comment: No Thrombosis Risk Factor Assessment Total Risk Factor Score: 4 Thrombosis Risk Factor Assessment Level: Moderate Risk Assessment and Plan Plan: Episodes of chest pain Hyponatremia on presentation Underlying history of hypertension Underlying history of hypothyroidism Underlying history of morbid obesity Underlying history of anxiety disorder Underlying history of degenerative disc disease with chronic back pain Underlying history of osteoarthritis with history of total right knee arthroplasty At this time patient was seen and examined on the medical floor She was started on IV heparin in the emergency room Cardiology consultation was requested Home medications reviewed and reordered Hydrochlorothiazide will be discontinued due to hyponatremia Patient will be given normal saline at 75 cc an hour Will monitor sodium level Will follow closely
[2024-04-25 11:36] LABS: ALT 17 U/L (4-34); AST 34 U/L (14-36); African American GFR (CKD) >90 (>60 ml/min/1.73 sqM); Albumin 3.8 g/dL (3.5-5.0); Albumin/Globulin Ratio 1.5; Alkaline Phosphatase 94 U/L (38-126); Anion Gap 5 mmol/L; Blood Urea Nitrogen 14 mg/dL (7-17); Calcium 9.2 mg/dL (8.4-10.2); Carbon Dioxide 25 mmol/L (22-30); Chloride 99 mmol/L (98-107); Globulin 2.5 g/dL; Glucose 98 mg/dL (74-99); Non-African American GFR(CKD) 85 (>60 ml/min/1.73 sqM); Potassium 4.4 mmol/L (3.5-5.1); Sodium 129 mmol/L (137-145); Total Bilirubin 0.8 mg/dL (0.2-1.3); Total Protein 6.3 g/dL (6.3-8.2)
[2024-04-25] MEDS: SODIUM CHLORIDE 0.9% 1,000 ML IV STA (12:49)
[2024-04-25] MEDS: VALSARTAN 160 MG TAB PO SCH (12:49)
[2024-04-25] MEDS: HEPARIN SOD,PORK IN 0.45% NACL 25,000 UNIT in 0.45% NACL 1 250ML.BAG IV SCH (12:51)
[2024-04-25] MEDS: hydroCHLOROthiazide 12.5 MG CAP PO SCH (13:08)
--- NOTE | 2024-04-25 18:48 | CA ---
Transthoracic Echo Report Name: Lupis Álvarez Age: 74 Gender: F : 1950 Exam Date: 04/25/2024 14:34 Exam Location: [facility] Ht (in): 65 Wt (lb): 250 Ordering Physician: Natalya Arias Attending/Referring Phys: [id number], Hugo [employer] Specialist Whitney Blank, MINAL Procedure CPT: Indications: LVF Cardiac Hx: Technical Quality: Fair Contrast 1: Total Dose (mL): Contrast 2: Total Dose (mL): MEASUREMENTS (Male / Female) Normal Values 2D ECHO LV Diastolic Diameter PLAX 5.5 cm 4.2 - 5.9 / 3.9 - 5.3 cm LV Systolic Diameter PLAX 2.9 cm IVS Diastolic Thickness 1.2 cm 0.6 - 1.0 / 0.6 - 0.9 cm LVPW Diastolic Thickness 1.2 cm 0.6 - 1.0 / 0.6 - 0.9 cm LV Relative Wall Thickness 0.4 RV Internal Dim ED PLAX 2.2 cm LA Systolic Diameter LX 4.9 cm 3.0 - 4.0 / 2.7 - 3.8 cm LV Diastolic Volume MOD BP 57.8 cm??? 67 - 155 / 56 - 104 cm??? LV Systolic Volume MOD BP 21.3 cm??? 22 - 58 / 19 - 49 cm??? LV Ejection Fraction MOD BP 63.2 % >= 55 % LV Cardiac Index MOD BP 1108.3 cm???/min???m??? LV Diastolic Volume MOD 4C 60.9 cm??? LV Systolic Volume MOD 4C 26.1 cm??? LV Ejection Fraction MOD 4C 57.1 % LV Cardiac Index MOD 4C 1056.0 cm???/min???m??? LV Diastolic Length 4C 7.6 cm LV Systolic Length 4C 5.9 cm LV Diastolic Volume MOD 2C 49.6 cm??? LV Systolic Volume MOD 2C 16.6 cm??? LV Ejection Fraction MOD 2C 66.6 % LV Cardiac Index MOD 2C 1002.5 cm???/min???m??? LV Diastolic Length 2C 6.8 cm LV Systolic Length 2C 5.6 cm LA Volume 75.7 cm??? 18 - 58 / 22 - 52 cm??? LA Volume Index 32.4 cm???/m??? 16 - 28 cm???/m??? M-MODE Aortic Root Diameter MM 3.2 cm LA Systolic Diameter MM 4.1 cm LA Ao Ratio MM 1.3 AV Cusp Separation MM 1.6 cm DOPPLER MV Area PHT 2.2 cm??? Mitral E Point Velocity 72.3 cm/s Mitral A Point Velocity 85.8 cm/s Mitral E to A Ratio 0.8 MV Deceleration Time 346.7 ms FINDINGS Left Ventricle Left ventricular ejection fraction is estimated at 55-60%. Mildly increased septal wall thickness. Mildly increased posterior wall thickness. Mildly increased left ventricular diastolic diameter. Left ventricular cavity size normal. No obvious regional wall motion abnormalities. Right Ventricle Normal right ventricular size and function. Unable to estimate the right ventricular systolic pressure. Right Atrium Normal right atrial size. Left Atrium Mildly increased left atrial volume. Mildly increased left atrial area. Mitral Valve Structurally normal mitral valve. Trace mitral regurgitation. No mitral stenosis. Aortic Valve Trileaflet aortic valve. No aortic valve stenosis or regurgitation. Tricuspid Valve Structurally normal tricuspid valve. No tricuspid stenosis. Trace tricuspid regurgitation. Pulmonic Valve Structurally normal pulmonic valve. No pulmonic stenosis. Trace pulmonic regurgitation. Pericardium Echo free space anterior to the right ventricle likely represents a fat pad. No pericardial or pleural effusion. Aorta Normal size aortic root and proximal ascending aorta. CONCLUSIONS Normal LV systolic function Previewed by: Dr. Stephane Giron MD (Electronically Signed) Final Date: 25 April 2024 18:47
[2024-04-25] MEDS: carvediloL 6.25 MG TAB PO SCH (18:58)
[2024-04-25 20:03] LABS: Partial Thromboplastin Time 43.7 sec (22.0-30.0)
[2024-04-25] MEDS: HEPARIN SODIUM 1,000 UN/ML (10ML VL) IV PRN (21:42)
[2024-04-26] MEDS: LEVOTHYROXINE 100 MCG TAB PO SCH (06:17)
[2024-04-26] MEDS ORDERED: HEPARIN SODIUM,PORCINE (1 ML) 2,500 UNIT in SODIUM CHLORIDE 0.9% 250 ML IRRIGATION PRN (07:00)
[2024-04-26] MEDS ORDERED: HEPARIN SODIUM,PORCINE 10,000 UNIT in SODIUM CHLORIDE 0.9% 1,000 ML IRRIGATION PRN (07:00)
[2024-04-26 07:58] LABS: Glucose,Whole Blood 113 mg/dL (70-110)
[2024-04-26] MEDS: ATORVASTATIN 80 MG TAB PO STA (08:35)
[2024-04-26] MEDS ORDERED: VERAPAMIL 2.5 MG/ML 2 ML AMP ONE (08:59)
[2024-04-26] MEDS ORDERED: LIDOCAINE 1% INJ 10MG/ML (20 ML MDV) ONE (09:00)
[2024-04-26] MEDS ORDERED: HEPARIN SODIUM 1,000 UN/ML (10ML VL) ONE (09:00)
[2024-04-26] MEDS ORDERED: fentaNYL (PF) 50 MCG/ML 2 ML AMP ONE (09:00)
[2024-04-26] MEDS: IV FLUID CONTINUATION 950 ML IV ONE (09:03)
[2024-04-26] MEDS: MELOXICAM 7.5 MG TAB PO SCH (09:15)
[2024-04-26] MEDS: fentaNYL (PF) 50 MCG/ML 2 ML AMP IVP ONE (09:18)
[2024-04-26] MEDS: MIDAZOLAM 2 MG/2 ML VIAL IVP ONE (09:18)
[2024-04-26] MEDS: LIDOCAINE 1% INJ 10MG/ML (20 ML MDV) SQ ONE (09:32)
[2024-04-26] MEDS: VERAPAMIL SYRINGE (5 MG/10 ML) INTRAARTER ONE (09:36)
[2024-04-26 09:37] LABS: Basophils # (A) 0.01 X 10*3/uL (0.00-0.10); Basophils % (A) 0.2 %; Eosinophils # (A) 0.11 X 10*3/uL (0.04-0.35); Eosinophils % (A) 2.5 %; HCT 34.1 % (37.2-46.3); HGB 11.5 g/dL (12.0-15.0); Lymphocytes # (A) 0.84 X 10*3/uL (0.90-5.00); MCH 32.5 pg (27.0-32.0); MCHC 33.7 g/dL (32.0-37.0); MCV 96.3 FL (80.0-97.0); Mean Platelet Volume 10.7 FL (9.5-12.2); Monocytes # (A) 0.42 X 10*3/uL (0.20-1.00); Monocytes % (A) 9.5 %; NRBC Per 100 WBC 0 X 10*3/uL (0.00-0.01); Neutrophils # (A) 3.01 X 10*3/uL (1.80-7.70); Neutrophils % (A) 68.1 %; Platelet Count 255 X 10*3/uL (140-440); RBC 3.54 X 10*6/uL (4.10-5.20); RDW 14.6 % (11.5-14.5); WBC 4.42 X 10*3/uL (4.50-10.00)
[2024-04-26] MEDS: HEPARIN SODIUM 1,000 UN/ML (10ML VL) IVP ONE (09:39)
[2024-04-26 09:45] LABS: ALT 15 U/L (8-44); AST 24 U/L (13-35); Albumin 3.8 g/dL (3.8-4.9); Albumin/Globulin Ratio 1.73 Ratio (1.60-3.17); Alkaline Phosphatase 93 U/L (41-126); Blood Urea Nitrogen 17.4 mg/dL (9.0-27.0); Calcium 8.6 mg/dL (8.7-10.3); Carbon Dioxide 22.1 mmol/L (21.6-31.8); Chloride 100 mmol/L (96-109); Globulin 2.2 g/dL (1.6-3.3); Glucose 107 mg/dL (70-110); Potassium 4.5 mmol/L (3.5-5.5); Sodium 133 mmol/L (135-145); Total Bilirubin 0.5 mg/dL (0.3-1.2)
[2024-04-26] MEDS: IOPAMIDOL-370 100ML BTL INJ ONE (09:46)
--- NOTE | 2024-04-26 09:47 | P.PN ---
Subjective Progress Note Date: 04/26/24 Lupis Álvarez, is a 74-year-old female who presented to [facility] emergency room with a chief complaint of chest pain, patient describes a pressure sensation in the lower sternal area, pain resolved when patient was in the emergency room, no recurrent episodes of pain since admission. She was evaluated in the emergency room vital examination on presentation revealed a temperature of 98 pulse 91 respiration 16 blood pressure 121/78 pulse ox 97% on room air Laboratory data reveals a white blood count of 5.9 hemoglobin 13.8 platelet count 278 sodium 123 potassium 4.8 chloride 94 CO2 23 BUN 19 creatinine 0.9 AST 46 ALT 17 troponin level 0.02 Testing in the emergency room revealed EKG revealed sinus rhythm with low QRS voltage in precordial leads chest x-ray revealed no acute cardiopulmonary process Patient was admitted to medical floor for further evaluation and treatment, cardiology consultation was requested. On 04/26/2024 patient was seen and examined on the medical floor she is alert and oriented x 3 in no apparent distress she denies any new episodes of chest pain, there is no fever or chills no headache or dizziness no shortness of breath no cough no nausea or vomiting no abdominal pain no diarrhea no urinary symptoms. Patient had hyponatremia on presentation, sodium improved from 123-129 with IV fluid and discontinuation of hydrochlorothiazide, will continue to monitor, cardiology planning cardiac catheterization for chest pain. Objective - Vital Signs Vital signs: Vital Signs Temp 97.9 F 04/26/24 07:00 Pulse 60 04/26/24 07:00 Resp 16 04/26/24 07:00 BP 131/66 04/26/24 07:00 Pulse Ox 98 04/26/24 07:00 FiO2 Intake & Output 04/25/24 04/26/24 04/26/24 18:59 06:59 18:59 Intake Total 458 120 121.443 Balance 458 120 121.443 Intake: Intake, IV Titration 0 121.443 Amount Heparin Sod,Pork in 0.45% 0 121.443 NaCl 25,000 unit In 0.45 % NaCl 1 250ml.bag @ 8. 818 UNITS/KG/HR 9.999 mls /hr IV .Q24H [facility] Rx#: [id number] Oral 458 120 Other: # Voids 2 - Exam In general patient is alert and oriented x 3 in no distress HEENT head normocephalic and atraumatic Neck is supple no JVD no goiter no lymphadenopathy no carotid bruit Chest examination is clear to auscultation no crackles no wheezing Cardiac exam reveals regular heart sounds S1 and S2 no gallops no murmurs Abdomen is soft nontender no organomegaly with normal bowel sounds Extremity exam reveals no edema no cyanosis or clubbing Neurological examination reveals no gross focal deficits - Labs CBC & Chem 7: 04/24/24 15:12 04/25/24 11:10 Labs: Abnormal Lab Results - Last 24 Hours (Table) 04/25/24 04/25/24 04/25/24 Range/Units 05:26 11:10 18:58 APTT 43.7 H (22.0-30.0) sec Sodium 129 L (137-145) mmol/L POC Glucose (mg/dL) (70-110) mg/dL HDL Cholesterol 98.60 H (40.00-60.00) mg/dL 04/26/24 04/26/24 Range/Units 04:13 07:57 APTT 89.7 H (22.0-30.0) sec Sodium (137-145) mmol/L POC Glucose (mg/dL) 113 H (70-110) mg/dL HDL Cholesterol (40.00-60.00) mg/dL Assessment and Plan Plan: Episodes of chest pain Hyponatremia on presentation Underlying history of hypertension Underlying history of hypothyroidism Underlying history of morbid obesity Underlying history of anxiety disorder Underlying history of degenerative disc disease with chronic back pain Underlying history of osteoarthritis with history of total right knee arthroplasty At this time patient was seen and examined on the medical floor She was started on IV heparin in the emergency room Cardiology consultation was requested Home medications reviewed and reordered Hydrochlorothiazide will be discontinued due to hyponatremia Patient will be given normal saline at 75 cc an hour Will monitor sodium level Will follow closely
[2024-04-26] MEDS ORDERED: RX INFO: IV CONTRAST WAS GIVEN 1 EACH MISC MISCELLANE PRN (09:55)
--- NOTE | 2024-04-26 12:38 | P.NPCON ---
History of Present Illness - Reason for Consult hyponatremia - History of Present Illness Reason for consultation: Hyponatremia History of present is: Patient is a 74-year-old female seen in renal consultation for hyponatremia. Patient sodium level on admission was 129 and is improved to 133 this morning. Patient came to the hospital due to chest discomfort and also shortness of breath. Patient states she was at a funny feeling in her stomach. Patient states symptoms have been going on for about 1 week. Oral intake has been good. Denies any vomiting or diarrhea. She denies excessive fluid intake. Patient states she drinks 3 20 ounce bottles of water, 2 cups of coffee and 1-2 bottles of iced tea daily. She does take hydrochlorothiazide outpatient. Denies history of diabetes. No history of malignancy. Patient denies use of nonsteroidals however I do see Phoebe on her home medication list. Echocardiogram showed preserved ejection fraction. She underwent cardiac catheterization this morning per nurse. Hemodynamically stable. No fever or chills. Feels better now. No gross hematuria or dysuria. No history of kidney disease. Vital signs are stable. General: No acute distress. HEENT: Head exam is unremarkable. LUNGS: No audible rhonchi or wheezes. HEART: Rate and Rhythm are regular. ABDOMEN: Nontender. EXTREMITITES: No edema. Past Medical History Past Medical History: Hypertension, Osteoarthritis (OA) Additional Past Medical History / Comment(s): BACK PAIN, HX OF "STOMACH STAPLING" History of Any Multi-Drug Resistant Organisms: None Reported Past Surgical History: Back Surgery, Bariatric Surgery, Cholecystectomy, Hysterectomy, Joint Replacement, Orthopedic Surgery Additional Past Surgical History / Comment(s): left knee replacment, "stomach staple x 3 " (DR [id number]) , COLONOSCOPY . cateracts removed Past Anesthesia/Blood Transfusion Reactions: No Reported Reaction Past Psychological History: No Psychological Hx Reported Smoking Status: Never smoker Past Alcohol Use History: Occasional Past Drug Use History: Marijuana Additional Drug Use History / Comment(s): OCCASIONAL USE- TO HOLD MARIJUANA 24 HOURS PRIOR TO PROCEDURE - Past Family History Mother Family Medical History: Diabetes Mellitus Brother(s) Family Medical History: Diabetes Mellitus Medications and Allergies Home Medications Medication Instructions Recorded Confirmed Type Ergocalciferol [Vitamin D2 1,250 mcg PO TU 11/12/17 04/24/24 History (DRISDOL)] HYDROcodone/APAP 10-325MG [[place] 1 tab PO Q8H PRN 11/12/17 04/24/24 History 10-325] ALPRAZolam [Xanax] 0.25 mg PO TID PRN 08/30/23 04/24/24 History carvediloL [Coreg] 6.25 mg PO BID-W/MEALS #0 tab 09/06/23 04/24/24 Rx Levothyroxine Sodium [Synthroid] 100 mcg PO DAILY 04/24/24 04/24/24 History Meloxicam [Mobic] 15 mg PO DAILY 04/24/24 04/24/24 History Valsartan/Hydrochlorothiazide 1 tab PO DAILY 04/24/24 04/24/24 History [Diovan Hct 160-12.5 mg Tab] Allergies Allergy/AdvReac Type Severity Reaction Status Date / Time No Known Allergies Allergy Verified 09/03/23 06:19 Physical Exam Vitals: Vital Signs Temp Pulse Resp BP Pulse Ox 04/26/24 07:00 97.9 F 60 16 131/66 98 04/26/24 01:33 97.7 F 60 16 121/75 99 04/25/24 20:15 97.5 F L 85 18 95/58 98 04/25/24 20:00 85 04/25/24 13:50 98.2 F 82 17 111/63 98 Intake and Output 04/25/24 04/26/24 04/26/24 22:59 06:59 14:59 Intake Total 118 120 221.443 Balance 118 120 221.443 Intake: IV 100 Intake, IV Titration 0 121.443 Amount Heparin Sod,Pork in 0.45% 0 121.443 NaCl 25,000 unit In 0.45 % NaCl 1 250ml.bag @ 8. 818 UNITS/KG/HR 9.999 mls /hr IV .Q24H [facility] Rx#: [id number] Oral 118 120 Other: # Voids 1 2 Results - Lab Results Most recent lab results Calcium 8.6 mg/dL (8.7-10.3) L 04/26/24 04:13 Magnesium 2.0 mg/dL (1.6-2.3) 04/24/24 15:12 04/26/24 04:13 04/26/24 04:13 Assessment and Plan Plan: Assessment: 1. Hypovolemic hyponatremia improved with IV fluids. Also component of use of thiazide diuretic. Sodium level 133 today. 2. Chest pain or shortness of breath status post cardiac catheterization this morning. 3. Benign hypertension. Controlled. Plan: Maintain IV fluids. Hep-Lock IV fluids at 3 PM. Encouraged oral intake. Avoid thiazide diuretics in future. Stop NSAIDs. Okay to take Tylenol as needed for pain. Repeat BMP and magnesium level 2 to 3 days postdischarge. Follow-up outpatient in 1 to 2 weeks. Thank you for the consultation. I will continue to follow the patient with you during her hospital stay.
[2024-04-26] MEDS: HYDROcodone/APAP 10-325MG 1 EACH TAB PO PRN (15:00)
--- NOTE | 2024-04-26 20:28 | CONS ---
CONSULTATION INDICATIONS: Unstable angina. PROCEDURE NOTE: After obtaining informed consent, left heart catheterization and coronary angiogram were performed via the right radial artery using standard Brook catheters. The patient tolerated the procedure well without any obvious immediate complications. Right radial artery access was obtained using Seldinger technique. A 6-Polish sheath was placed. Catheters and wires were floated into the ascending aorta under fluoroscopic guidance. The patient received verapamil and heparin per protocol. The heparin was stopped 2 hours ago and I gave her additional heparin. The patient tolerated the procedure well received conscious sedation. Total sedation time was 15 minutes. FINDINGS: 1. Hemodynamics: Left ventricular end-diastolic pressure is 18 mm. There is no significant gradient across the aortic valve. 2. Left Ventriculogram: Left ventriculogram is not performed. 3. Angiographic Data: a.Right Coronary Artery: Right coronary artery is a large dominant vessel that shows mild nonobstructive disease. Left main coronary artery shows mild calcification, but is free of significant disease, divides into left anterior descending coronary artery and circumflex coronary artery. LAD and its branches, circumflex coronary artery are free of significant disease. CONCLUSION: Mild nonobstructive CAD. PLAN: The patient's chest discomfort is noncardiac in origin. Echocardiogram looks normal. She will work on risk factor modification, optimal medical therapy. MMODL / IJN: [id number] /
[2024-04-26] MEDS: ATORVASTATIN 20 MG TAB PO SCH (20:51)
[2024-04-27] MEDS: ASPIRIN 81 MG PO SCH (08:49)
--- NOTE | 2024-04-27 13:14 | P.PN ---
Subjective Patient is seen in follow-up for hyponatremia. Sodium level 133 yesterday. Oral intake is good. Off IV fluids. No active complaints. Vital signs are stable. General: No acute distress. HEENT: Head exam is unremarkable. LUNGS: No audible rhonchi or wheezes. HEART: Rate and Rhythm are regular. ABDOMEN: Nontender. EXTREMITITES: No edema. Objective - Vital Signs Vital signs: Vital Signs Temp 98.4 F 04/27/24 07:00 Pulse 60 04/27/24 07:00 Resp 16 04/27/24 08:49 BP 152/76 04/27/24 07:00 Pulse Ox 96 04/27/24 08:11 FiO2 Intake & Output 04/26/24 04/27/24 04/27/24 18:59 06:59 18:59 Intake Total 457.443 100 Balance 457.443 100 Intake: IV 100 Intake, IV Titration 121.443 Amount Heparin Sod,Pork in 0.45% 121.443 NaCl 25,000 unit In 0.45 % NaCl 1 250ml.bag @ 8. 818 UNITS/KG/HR 9.999 mls /hr IV .Q24H [facility] Rx#: [id number] Oral 236 100 Other: Voiding Method Toilet Toilet # Voids 1 2 - Labs CBC & Chem 7: 04/26/24 04:13 04/26/24 04:13 Assessment and Plan Plan: Assessment: 1. Hypovolemic hyponatremia improved with IV fluids. Also component of use of thiazide diuretic. Sodium level 133 yesterday. 2. Chest pain or shortness of breath status post cardiac catheterization this morning. 3. Benign hypertension. Plan: Encouraged oral intake. Avoid thiazide diuretics in future. Add hydralazine 50 mg twice daily. Avoid NSAIDs. Okay to take Tylenol as needed for pain. Repeat BMP and magnesium level 2 to 3 days postdischarge. Follow-up outpatient in 1 to 2 weeks. Thank you for the consultation. I will continue to follow the patient with you during her hospital stay.
[2024-04-27] MEDS ORDERED: hydrALAZINE HCL 50 MG TAB PO SCH (13:15)
[2024-04-27 14:17] VITALS: BP 106/66; PULSE 72; RESP 14; TEMP 98.5
--- NOTE | 2024-04-27 14:51 | P.DS ---
Providers Date of admission: 04/24/24 16:40 Expected date of discharge: 04/27/24 Attending physician: Eliana Wade Consults: 04/24/24 16:39 Consult Physician Urgent Consulting Provider: Mainor Potter Consult Reason/Comments: chest pain Do you want consulting provider notified?: Yes 04/26/24 09:13 Consult Physician Routine Consulting Provider: Alba Beckett Consult Reason/Comments: hyponatremia Do you want consulting provider notified?: Yes Primary care physician: Eliana Wade [facility] Course: Diagnosis on discharge: Episodes of chest pain Hyponatremia on presentation Underlying history of hypertension Underlying history of hypothyroidism Underlying history of morbid obesity Underlying history of anxiety disorder Underlying history of degenerative disc disease with chronic back pain Underlying history of osteoarthritis with history of total right knee arthroplasty Hospital course: Lupis Álvarez, is a 74-year-old female who presented to [facility] emergency room with a chief complaint of chest pain, patient describes a pressure sensation in the lower sternal area, pain resolved when patient was in the emergency room, no recurrent episodes of pain since admission. She was evaluated in the emergency room vital examination on presentation revealed a temperature of 98 pulse 91 respiration 16 blood pressure 121/78 pulse ox 97% on room air Laboratory data reveals a white blood count of 5.9 hemoglobin 13.8 platelet count 278 sodium 123 potassium 4.8 chloride 94 CO2 23 BUN 19 creatinine 0.9 AST 46 ALT 17 troponin level 0.02 Testing in the emergency room revealed EKG revealed sinus rhythm with low QRS voltage in precordial leads chest x-ray revealed no acute cardiopulmonary process Patient was admitted to medical floor for further evaluation and treatment, cardiology consultation was requested. On 04/26/2024 patient was seen and examined on the medical floor she is alert and oriented x 3 in no apparent distress she denies any new episodes of chest pain, there is no fever or chills no headache or dizziness no shortness of breath no cough no nausea or vomiting no abdominal pain no diarrhea no urinary symptoms. Patient had hyponatremia on presentation, sodium improved from 123-129 with IV fluid and discontinuation of hydrochlorothiazide, will continue to monitor, cardiology planning cardiac catheterization for chest pain. On 04/27/2024 patient was seen and examined on the medical floor she is alert and oriented x 3 in no apparent distress, she denies any complaints at this time there is no fever or chills no headache or dizziness no chest pain no shortness of breath no cough no nausea or vomiting no abdominal pain no diarrhea no urinary symptoms, patient underwent cardiac catheterization yesterday which was within normal limits, no angioplasty or stent placement, patient was evaluated by cardiology and nephrology and was cleared for discharge, during this admission hydrochlorothiazide was discontinued, hydralazine 50 mg twice daily was added, and Lipitor 20 mg once daily was added, will follow in the office within 1 week Patient Condition at Discharge: Serious Plan - Discharge Summary New Discharge Prescriptions: New Valsartan [Diovan] 160 mg PO DAILY 30 Days #30 tab hydrALAZINE HCL [Apresoline] 50 mg PO BID 60 Days #30 tab Aspirin 81 mg PO DAILY 60 Days #30 tab Atorvastatin [Lipitor] 20 mg PO HS 30 Days #30 tab Continue Ergocalciferol [Vitamin D2 (DRISDOL)] 1,250 mcg PO TU HYDROcodone/APAP 10-325MG [[place] 10-325] 1 tab PO Q8H PRN PRN Reason: pain carvediloL [Coreg] 6.25 mg PO BID-W/MEALS #0 tab ALPRAZolam [Xanax] 0.25 mg PO TID PRN PRN Reason: Anxiety Levothyroxine Sodium [Synthroid] 100 mcg PO DAILY Meloxicam [Mobic] 15 mg PO DAILY Discontinued Valsartan/Hydrochlorothiazide [Diovan Hct 160-12.5 mg Tab] 1 tab PO DAILY Discharge Medication List Ergocalciferol [Vitamin D2 (DRISDOL)] 1,250 mcg PO TU 11/12/17 [History] HYDROcodone/APAP 10-325MG [[place] 10-325] 1 tab PO Q8H PRN 11/12/17 [History] ALPRAZolam [Xanax] 0.25 mg PO TID PRN 08/30/23 [History] carvediloL [Coreg] 6.25 mg PO BID-W/MEALS #0 tab 09/06/23 [Rx] Levothyroxine Sodium [Synthroid] 100 mcg PO DAILY 04/24/24 [History] Meloxicam [Mobic] 15 mg PO DAILY 04/24/24 [History] Aspirin 81 mg PO DAILY 60 Days #30 tab 04/27/24 [Rx] Atorvastatin [Lipitor] 20 mg PO HS 30 Days #30 tab 04/27/24 [Rx] Valsartan [Diovan] 160 mg PO DAILY 30 Days #30 tab 04/27/24 [Rx] hydrALAZINE HCL [Apresoline] 50 mg PO BID 60 Days #30 tab 04/27/24 [Rx] Follow up Appointment(s)/Referral(s): None,Stated [REFERRING] - 1-2 days Stephane Giron MD [STAFF PHYSICIAN] - 2 Weeks
--- NOTE | 2024-04-27 14:58 | P.PN ---
Subjective This is a 74-year-old female patient with past medical history of hypertension. 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 We have been asked to evaluate the patient for chest pain. Patient presented to the hospital due to chest pain that been going on for 1 week, worse with exertion. Patient also states that she has nausea for the past week along with hot sweats and a little pressure to the chest. She is a lifelong non-smoker, she drinks alcohol occasionally. No marijuana or illicit drug use. The chest pain gradually worsened and that is why she came into the hospital. Patient is s/p aspirin, started on heparin drip and seen today on the observation unit. Blood pressure 126/71, heart rate 51, pulse ox 97% on room air. Discussed cardiac catheterization with the patient and she is agreeable to move forward with this. EKG: Sinus rhythm with no acute ST-T wave changes. Chest x-ray: No acute process. Laboratory studies: Hemoglobin 13.8. BUN 19 creatinine 0.9. Troponins negative x 3. AST 46, sodium 123, potassium 4.8. Home cardiac medications: Coreg 6.25 mg twice daily, valsartan/hydrochlorothiazide 160-12.5 mg daily, also on levothyroxine 100 mcg daily 04/27 patient seen and examined. Patient underwent heart catheterization yesterday which showed normal coronary arteries. She denies any chest pain or pressure. States she is feeling better. No significant hematoma or swelling around her right radial site. Physical examination: Gen: This is a 74-year-old morbidly obese female in no acute distress VS: reviewed HEENT: Head is atraumatic, normocephalic. Pupils equal, round. Sclerae is anicteric. NECK: Supple. No JVD. LUNGS: Clear to auscultation. No wheezes or rhonchi. No intercostal retractions. HEART: Regular rate and rhythm. No murmur. ABDOMEN: Soft No tenderness. EXTREMITIES: No pedal edema. No calf tenderness. NEUROLOGICAL: Patient is awake, alert and oriented x3. Assessment: Unstable angina Hypertension Morbid obesity with BMI of 41 Plan: patient stable for discharge home from a cardiology standpoint. A heart catheterization shows no significant coronary artery disease. Follow-up in outp atient 1 week. Objective - Vital Signs Vital signs: Vital Signs Temp 98.5 F 04/27/24 14:16 Pulse 72 04/27/24 14:16 Resp 14 04/27/24 14:16 BP 106/66 04/27/24 14:16 Pulse Ox 96 04/27/24 14:16 FiO2 Intake & Output 04/26/24 04/27/24 04/27/24 18:59 06:59 18:59 Intake Total 457.443 100 Balance 457.443 100 Intake: IV 100 Intake, IV Titration 121.443 Amount Heparin Sod,Pork in 0.45% 121.443 NaCl 25,000 unit In 0.45 % NaCl 1 250ml.bag @ 8. 818 UNITS/KG/HR 9.999 mls /hr IV .Q24H [facility] Rx#: [id number] Oral 236 100 Other: Voiding Method Toilet Toilet # Voids 1 2 4 - Labs CBC & Chem 7: 04/26/24 04:13 04/26/24 04:13
[2024-04-28] MEDS ORDERED: ERGOCALCIFEROL 1,250 MCG (50,000 IU) CAPSULE PO SCH (09:00)
--- NOTE | 2024-05-05 11:39 | CC ---
CARDIAC CATHETERIZATION REPORT INDICATION: Unstable angina. PROCEDURE NOTE: After obtaining informed consent, left heart catheterization and coronary angiogram were performed with the right radial artery using standard Brook catheters. The patient tolerated the procedure well without any obvious immediate complications. The patient received moderate conscious sedation. Total sedation time was 18 minutes. Right radial artery access was obtained using Seldinger technique. A 6-[place]ori sheath was placed. Catheters and wires were floated into the ascending aorta under fluoroscopic guidance. The patient received verapamil and heparin per protocol. TR band was used for hemostasis. FINDINGS: 1. Hemodynamics: Left ventricular end-diastolic pressure is 16 mm. There is no significant gradient across the aortic valve. 2. Left ventriculogram: Left ventriculogram is not performed. 3. Angiographic data: a.Right coronary artery: Right coronary artery shows mild nonobstructive disease. b.Left main coronary artery: Left main coronary artery is a normal-sized vessel and is free of stenosis. Divides into left anterior descending coronary artery and circumflex coronary artery. LAD and its branches, circumflex coronary artery and its branches are free of significant disease. CONCLUSION: Mild nonobstructive CAD involving right coronary artery. PLAN: The patient's chest discomfort is noncardiac in origin and her management is going to be in the form of risk factor modification. MMODL / IJN: [id number] /
== END 2024-04-27 15:41 | disposition home or self-care (01) | DRG 287 ==
LOC: EC 14:40 → 6NMEDSUR 16:39 → OBSVTOIN 16:40 → 6NMEDSUR 16:54
PROVIDERS: ADMIT Internal Medicine; ATTEND Internal Medicine
PROC: 4A023N7 Measurement of Cardiac Sampling and Pressure, Left Heart, Percutaneous Approach (ICD-10-PCS; principal; 2024-04-26 12:05)
PROC: B2111ZZ Fluoroscopy of Multiple Coronary Arteries using Low Osmolar Contrast (ICD-10-PCS; principal; 2024-04-26 12:05)
DX: I25.110 Atherosclerotic heart disease of native coronary artery with unstable angina pectoris (principal); E87.1 Hypo-osmolality and hyponatremia; Z68.41 Body mass index [BMI] 40.0-44.9, adult; E66.01 Morbid (severe) obesity due to excess calories; M54.9 Dorsalgia, unspecified; M19.90 Unspecified osteoarthritis, unspecified site; F41.9 Anxiety disorder, unspecified; G89.29 Other chronic pain; E86.1 Hypovolemia; I10 Essential (primary) hypertension; Z79.01 Long term (current) use of anticoagulants; Z79.1 Long term (current) use of non-steroidal anti-inflammatories (NSAID); Z79.890 Hormone replacement therapy; Z79.899 Other long term (current) drug therapy; Z96.651 Presence of right artificial knee joint; Z98.84 Bariatric surgery status
CPT/HCPCS: 36415; 71046; 80053; 80061; 83735; 84484; 85025; 85610; 85730; 93005; 93306; 93458; 94760; 96365; 96366; 99291